=== PATIENT | male | born 1955 | race Caucasian/White ===

== ENCOUNTER 2017-06-20 12:29 | Emergency (ER) | payer MEDICARE ==
[2017-06-20] MEDS ORDERED: Zofran 4 MG/2 ML VIAL IV ONE (12:48)
[2017-06-20] MEDS ORDERED: MORPHINE SULFATE 2 MG INJ IV ONE (12:48)
[2017-06-20] MEDS ORDERED: Sodium Chloride 0.9% 1000 ML 1,000 ML IV STA (12:48)
[2017-06-20] MEDS ORDERED: Sodium Chloride 0.9% 1000 ML 1,000 ML ONE (12:53)
[2017-06-20] MEDS ORDERED: Zofran 4 MG/2 ML VIAL ONE (12:53)
[2017-06-20] MEDS ORDERED: MORPHINE SULFATE 2 MG INJ ONE (12:53)
--- NOTE | 2017-06-20 12:53 | ERPHSYRPT ---
- History of Present Illness Time Seen by Provider: 06/20/17 12:50 Historian: patient Exam Limitations: no limitations Patient Subjective Stated Complaint: pt states he began having chest pain that started this morning. states he became nauseated at that time. Triage Nursing Assessment: pt pink, warm, dry. lung sounds clear and equal. radial pulses strong and equal. Physician History: 62-year-old male with significant past medical history of hypertension came to the emergency room with complaining of left-sided chest pain radiating to the left arm started approximately one day ago, which was off and on, but in the last 1520 minutes. It got worse made him diaphoretic and had episode of nausea , so he came to the emergency room. In the emergency room. Patient just pain has lessened and he was feeling little bit better. Patient denies any loss of consciousness. Patient states that he has some abnormal EKGs in the past with right bundle-branch block. Timing/Duration: yesterday Activities at Onset: none Quality: aching Location: substernal Chest Pain Radiation: arm Severity of Pain-Max: moderate Severity of Pain-Current: mild Modifying Factors: Improves With: nothing Associated Symptoms: nausea, hurts to breathe, weakness Nitro Today/Relief: no nitro taken today Aspirin Treatment Today: no aspirin today Allergies/Adverse Reactions: No Known Drug Allergies Allergy (Verified 06/20/17 12:37) Home Medications: Aspirin [Aspirin EC] 81 mg PO DAILY 06/27/16 [History] Bupropion HCl [Wellbutrin Xl] 300 mg PO DAILY 06/27/16 [History] Cyanocobalamin (Vitamin B-12) [Vitamin B-12] 2,500 mcg PO DAILY 06/27/16 [ History] Hydroxychloroquine Sulfate [Plaquenil] 200 mg PO BID 06/27/16 [History] Iron 65 mg PO DAILY 06/27/16 [History] Tamsulosin HCl 0.4 mg [Flomax 0.4 MG] 0.4 mg PO DAILY 06/27/16 [History] Thiamine HCl [Vitamin B-1] 250 mg PO DAILY 06/27/16 [History] Trazodone HCl [Oleptro ER] 300 mg PO HS 06/27/16 [History] Calcium Citrate/Vitamin D3 [Calcium Cit-Vit D 250-200 Tab] 1 tab PO TIDAC [History] Melatonin/Pyridoxine [Melatonin 5 mg Tablet] 2 each PO HS PRN PRN 06/28/16 [ History] Alprazolam 0.25 mg [xanAX 0.25 MG] 0.25 mg PO DAILY 06/20/17 [History] Loratadine [Claritin] 10 mg PO DAILY 06/20/17 [History] Losartan Potassium 50 mg PO DAILY 06/20/17 [History] PANTOPRAZOLE 40 mg Tablet [Protonix 40MG Tablet] 40 mg PO DAILY 06/20/17 [ History] Vortioxetine Hydrobromide [Brintellix] 0 mg PO DAILY 06/20/17 [History] Hx Tetanus, Diphtheria Vaccination/Date Given: Yes (up ot date) Hx Influenza Vaccination/Date Given: Yes Hx Pneumococcal Vaccination/Date Given: No Immunizations Up to Date: Yes - Review of Systems Constitutional: No Fever, No Chills Eyes: No Symptoms Ears, Nose, & Throat: No Symptoms Respiratory: No Cough, No Dyspnea Cardiac: No Chest Pain, No Edema, No Syncope Abdominal/Gastrointestinal: No Abdominal Pain, No Nausea, No Vomiting, No Diarrhea Genitourinary Symptoms: No Dysuria Musculoskeletal: No Back Pain, No Neck Pain Skin: No Rash Neurological: No Dizziness, No Focal Weakness, No Sensory Changes Psychological: No Symptoms Endocrine: No Symptoms All Other Systems: Reviewed and Negative - Past Medical History Pertinent Past Medical History: Yes Neurological History: Migraines, Peripheral Neuropathy ENT History: Cataracts Cardiac History: Hypertension Respiratory History: No Pertinent History Endocrine Medical History: Adrenal Insufficiency Musculoskeletal History: Degenerative Disk Disease, Osteoarthritis GI Medical History: Hernia History: Other Psycho-Social History: Bipolar, Depression Male Reproductive Disorders: Other Other Medical History: Pt has had 7 back surgeries, two fusions, last surgery in 2005, B TKA, R GLENDY, Cervical fusion. Stage 3 kidney failure, removal of fatty tumor from neck, Bundle branch blockage, MRSA x3, Myelodysplasatic Syndrome. - Past Surgical History Past Surgical History: Yes Neuro Surgical History: No Pertinent History Cardiac: Cardiac Catheterization Respiratory: No Pertinent History Gastrointestinal: Appendectomy, Cholecystectomy Genitourinary: No Pertinent History Musculoskeletal: Joint Replacement, Orthopedic Surgery, Other Male Surgical History: No Pertinent History Other Surgical History: BOTH KNEES REPLACED. RIGHT HIP. 7 BACK OPERATIONS. GASTRIC BYP-ASS. 8 KIDNES STONES REMOVED. 2 CERVICAL FUSIONS. 2 HERNIA REPAIRS - Social History Smoking Status: Former smoker Exposure to second hand smoke: No Drug Use: none Patient Lives Alone: No - Nursing Vital Signs Nursing Vital Signs: Initial Vital Signs Temperature 98.7 F 06/20/17 12:31 Pulse Rate 78 06/20/17 12:31 Respiratory Rate 20 06/20/17 12:31 Blood Pressure 136/82 06/20/17 12:31 O2 Sat by Pulse Oximetry 98 06/20/17 12:31 Pain Scale Pain Intensity 6 - Physical Exam General Appearance: no apparent distress, alert Eye Exam: PERRL/EOMI, eyes nml inspection Ears, Nose, Throat Exam: normal ENT inspection, moist mucous membranes Neck Exam: normal inspection, non-tender, supple, full range of motion Respiratory Exam: normal breath sounds, lungs clear, No respiratory distress Cardiovascular Exam: regular rate/rhythm, normal heart sounds Gastrointestinal/Abdomen Exam: soft, No tenderness, No mass Back Exam: normal inspection, No CVA tenderness, No vertebral tenderness Extremity Exam: normal inspection, normal range of motion Neurologic Exam: alert, oriented x 3, cooperative, normal mood/affect, sensation nml, No motor deficits Skin Exam: normal color, warm, dry SpO2: 98 Oxygen Delivery: Room Air - Course Nursing assessment & vital signs reviewed: Yes - Radiology Exams Chest X-ray Interpretation: Reviewed by me Ordered Tests: Active Orders 24 hr Category Date Time Status Commercial [employer] Building [employer]er STAT Care 06/20/17 12:44 Active EKG-ER Only STAT Care 06/20/17 12:55 Active IV Insertion STAT Care 06/20/17 12:43 Active Pulse Oximetry (ED) STAT Care 06/20/17 12:43 Active CHEST 2 VIEWS (PA AND LAT) Stat Exams 06/20/17 12:48 Taken CBC W DIFF Stat Lab 06/20/17 12:50 Completed CMP Stat Lab 06/20/17 12:50 Completed D-DIMER QUANTITATION Stat Lab 06/20/17 12:50 Completed Manual Differential NC Stat Lab 06/20/17 12:50 Completed NT PRO BNP Stat Lab 06/20/17 12:50 Completed TROPONIN Q3H Lab 06/20/17 12:50 Completed TROPONIN Q3H Lab 06/20/17 16:00 Ordered TROPONIN Q3H Lab 06/20/17 19:00 Ordered TROPONIN Q3H Lab 06/20/17 22:00 Ordered TROPONIN Q3H Lab 06/21/17 01:00 Ordered Medication Summary Discontinued Medications Generic Name Dose Route Start Last Admin Trade Name Kellee PRN Reason Stop Dose Admin Sodium Chloride 1,000 mls @ 999 mls/hr 06/20/17 12:48 06/20/17 12:55 Sodium Chloride 0.9% 1000 Ml IV 06/20/17 13:48 999 mls/hr .Q1H1M STA Administration Sodium Chloride Confirm 06/20/17 12:53 Sodium Chloride 0.9% 1000 Ml Administered 06/20/17 12:54 Dose 1,000 mls @ ud .ROUTE .STK-MED ONE Ketorolac Tromethamine 30 mg 06/20/17 14:10 06/20/17 14:19 Toradol 30 Mg Injection IV 06/20/17 14:11 30 mg STAT ONE Administration Morphine Sulfate 2 mg 06/20/17 12:48 06/20/17 12:55 Morphine Sulfate 2 Mg Inj IV 06/20/17 12:49 2 mg STAT ONE Administration Morphine Sulfate Confirm 06/20/17 12:53 Morphine Sulfate 2 Mg Inj Administered 06/20/17 12:54 Dose 2 mg .ROUTE .STK-MED ONE Ondansetron HCl 4 mg 06/20/17 12:48 06/20/17 12:55 Zofran 4 Mg/2 Ml Vial IV 06/20/17 12:49 4 mg STAT ONE Administration Ondansetron HCl Confirm 06/20/17 12:53 Zofran 4 Mg/2 Ml Vial Administered 06/20/17 12:54 Dose 4 mg .ROUTE .STK-MED ONE Lab/Rad Data: Laboratory Result Diagrams 06/20/17 12:50 06/20/17 12:50 Laboratory Results 06/20/17 06/20/17 06/20/17 Range/Units 12:50 12:50 12:50 WBC (4.0-10.5) K/mm3 RBC (4.1-5.6) M/mm3 Hgb (12.5-18.0) gm/dl Hct (42-50) % MCV (78-100) fl MCH (26-32) pg MCHC (32-36) g/dl RDW (11.5-14.0) % Plt Count (150-450) K/mm3 MPV (6-9.5) fl Segmented Neutrophils (36.-66.) % Lymphocytes (Manual) (24-44) % Monocytes (Manual) (0.0-12.0) % Eosinophils (Manual) (0.00-3.0) % Differential Comment Platelet Estimate (NORMAL) Anisocytosis D-Dimer 274 (0-500) ng/mL Sodium 141 (136-145) mEq/L Potassium 4.1 (3.5-5.1) mEq/L Chloride 108 H (98-107) mEq/L Carbon Dioxide 24.7 (21-32) mEq/L Anion Gap 12.7 (5-15) MEQ/L BUN 22 H (9-20) mg/dL Creatinine 1.51 H (0.55-1.30) mg/dl Estimated GFR 50 ML/MIN Glucose 97 (70-110) MG/DL Calcium 8.7 (8.5-10.1) mg/dL Total Bilirubin 0.30 (0.2-1.0) mg/dL AST 13 L (15-37) U/L ALT 25 (12-78) U/L Alkaline Phosphatase 85 (46-116) U/L Troponin I < 0.017 (0.000-0.056) ng/ml NT-Pro-B Natriuret Pep 55 (0-125) pg/ml Serum Total Protein 6.9 (6.4-8.2) gm/dL Albumin 4.0 (3.4-5.0) g/dL 06/20/17 Range/Units 12:50 WBC 3.1 L (4.0-10.5) K/mm3 RBC 4.03 L (4.1-5.6) M/mm3 Hgb 11.7 L (12.5-18.0) gm/dl Hct 37.8 L (42-50) % MCV 93.8 (78-100) fl MCH 29.0 (26-32) pg MCHC 31.0 L (32-36) g/dl RDW 15.7 H (11.5-14.0) % Plt Count 189 (150-450) K/mm3 MPV 10.8 H (6-9.5) fl Segmented Neutrophils 74 H (36.-66.) % Lymphocytes (Manual) 21 L (24-44) % Monocytes (Manual) 4 (0.0-12.0) % Eosinophils (Manual) 1 (0.00-3.0) % Differential Comment ABNORMAL Platelet Estimate NORMAL (NORMAL) Anisocytosis 1+ D-Dimer (0-500) ng/mL Sodium (136-145) mEq/L Potassium (3.5-5.1) mEq/L Chloride (98-107) mEq/L Carbon Dioxide (21-32) mEq/L Anion Gap (5-15) MEQ/L BUN (9-20) mg/dL Creatinine (0.55-1.30) mg/dl Estimated GFR ML/MIN Glucose (70-110) MG/DL Calcium (8.5-10.1) mg/dL Total Bilirubin (0.2-1.0) mg/dL AST (15-37) U/L ALT (12-78) U/L Alkaline Phosphatase (46-116) U/L Troponin I (0.000-0.056) ng/ml NT-Pro-B Natriuret Pep (0-125) pg/ml Serum Total Protein (6.4-8.2) gm/dL Albumin (3.4-5.0) g/dL - Progress Progress: improved Air Movement: good Blood Culture(s) Obtained: No Antibiotics given: No Counseled pt/family regarding: lab results, diagnosis, need for follow-up, rad results - Departure Time of Disposition: 14:24 Departure Disposition: Home Clinical Impression: Chest pain of uncertain etiology, Pleurisy without effusion Condition: Stable Critical Care Time: Yes Critical Care Time(excluding separately billable procedures): 30-74 minutes Referrals: NOAH TORRES [Primary Care Provider] - Instructions: Chest Pain, Pleurisy Additional Instructions: During your ER visit, we have ruled out critical cause for your chest pain, which include heart attack, and or pneumonia and some other important cause including pulmonary embolism. But it is necessary that you follow up with your primary care physician in next 1-2 days and get further workup done if necessary. If your chest pain recur. Please come back to the emergency room. Please stay on all your medication. Follow-up with her primary care physician in next 1-2 days. Please take 4 baby aspirin once a day for next 3-5 days, which may help in 39-year-old pleursy like chest pain
[2017-06-20 13:17] LABS: Mean Cell Volume 93.8 fl (78-100); Mean Platelet Volume 10.8 fl (6-9.5); Platelet Count 189 K/mm3 (150-450); Red Blood Count 4.03 M/mm3 (4.1-5.6); Red Cell Distribution Width 15.7 % (11.5-14.0); White Blood Count 3.1 K/mm3 (4.0-10.5)
[2017-06-20 13:34] LABS: ANION GAP 12.7 MEQ/L (5-15); BILIRUBIN,TOTAL 0.3 mg/dL (0.2-1.0); Carbon Dioxide 24.7 mEq/L (21-32); Potassium 4.1 mEq/L (3.5-5.1); Total Protein 6.9 gm/dL (6.4-8.2)
[2017-06-20] MEDS ORDERED: TORAdol 30 mg Injection IV ONE (14:10)
[2017-06-20] MEDS ORDERED: TORAdol 30 mg Injection ONE (14:18)
[2017-06-20 14:20] LABS: ANISOCYTOSIS 1+; Eosinophil 1 % (0.00-3.0); Platelet Estimate NORMAL (NORMAL); Total Cells Counted 100
[2017-06-20 14:59] VITALS: BP 134/70; PULSE 87; O2SAT 100
--- NOTE | 2017-06-20 21:08 | XRAY ---
Indication: Chest pain. Comparison: December 20, 2015. PA/lateral chest again hyperinflated and clear with a few incidental calcified granulomas. Heart is not enlarged. Bony thorax intact again with minimal degenerative changes and partially visualized lower cervical fusion surgery. Impression: Stable nonacute hyperinflated chest with chronic features. Comment: Preliminary interpretation was made by [facility]. No discrepancy.
== END 2017-06-20 14:59 | disposition home or self-care (01) ==
LOC: ED 12:29
DX: R07.89 Other chest pain (principal); R09.1 Pleurisy; R11.2 Nausea with vomiting, unspecified; I10 Essential (primary) hypertension
CPT/HCPCS: 36000; 36415; 71020; 80053; 83880; 84484; 85025; 85379; 93005; 93041; 96360; 96374; 96375; 99284; J1885; J2270; J2405

== ENCOUNTER 2017-07-12 15:05 | Emergency (ER) | payer MEDICARE ==
--- NOTE | 2017-07-12 16:49 | ERPHSYRPT ---
- History of Present Illness Time Seen by Provider: 07/12/17 16:44 Source: patient Exam Limitations: no limitations Patient Subjective Stated Complaint: c/o back pain located on the left side that goes down left leg. Triage Nursing Assessment: PT was very slow to stand up to walk into ER. Pt walked slowly with a cane bent over. Skin is pink warm and dry. respirations even and unlabored. Physician History: The patient is a 62-year-old male with chronic back pain complaining of an exacerbation today. He has pain in the left low back that radiates down into his left leg. He has known left sciatica. He has tizanidine for muscle spasms but it has not helped much today. 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 His past medical history is significant for chronic back pain, multiple back surgeries, BPH, GERD, depression, anxiety, and hypertension. Timing/Duration: today Method of Injury: unknown Quality: radiating, sharp Back Pain Location: lumbar spine, paraspinous muscles Back Pain Radiation: buttocks, upper legs Severity of Pain-Max: moderate Severity of Pain-Current: moderate Modifying Factors: Improves With: pain medication Associated Symptoms: muscle spasms Previous symptoms: same symptoms as today Allergies/Adverse Reactions: No Known Drug Allergies Allergy (Verified 06/20/17 12:37) Home Medications: Aspirin [Aspirin EC] 81 mg PO DAILY 06/27/16 [History] Bupropion HCl [Wellbutrin Xl] 300 mg PO DAILY 06/27/16 [History] Cyanocobalamin (Vitamin B-12) [Vitamin B-12] 2,500 mcg PO DAILY 06/27/16 [ History] Hydroxychloroquine Sulfate [Plaquenil] 200 mg PO BID 06/27/16 [History] Iron 65 mg PO DAILY 06/27/16 [History] Tamsulosin HCl 0.4 mg [Flomax 0.4 MG] 0.4 mg PO DAILY 06/27/16 [History] Thiamine HCl [Vitamin B-1] 250 mg PO DAILY 06/27/16 [History] Trazodone HCl [Oleptro ER] 300 mg PO HS 06/27/16 [History] Calcium Citrate/Vitamin D3 [Calcium Cit-Vit D 250-200 Tab] 1 tab PO TIDAC [History] Melatonin/Pyridoxine [Melatonin 5 mg Tablet] 2 each PO HS PRN PRN 06/28/16 [ History] Alprazolam 0.25 mg [xanAX 0.25 MG] 0.25 mg PO DAILY 06/20/17 [History] Loratadine [Claritin] 10 mg PO DAILY 06/20/17 [History] Losartan Potassium 50 mg PO DAILY 06/20/17 [History] PANTOPRAZOLE 40 mg Tablet [Protonix 40MG Tablet] 40 mg PO DAILY 06/20/17 [ History] Vortioxetine Hydrobromide [Brintellix] 10 mg PO DAILY 06/20/17 [History] Clonidine HCl 0.3 mg PO DAILY 07/12/17 [History] Gabapentin [Neurontin] 600 mg PO DAILY 07/12/17 [History] Hx Tetanus, Diphtheria Vaccination/Date Given: Yes (2016) Hx Influenza Vaccination/Date Given: Yes (2016) Hx Pneumococcal Vaccination/Date Given: Yes (2016) Immunizations Up to Date: Yes - Review of Systems Constitutional: No Fever, No Chills Eyes: No Symptoms Ears, Nose, & Throat: No Symptoms Respiratory: No Cough, No Dyspnea Cardiac: No Chest Pain, No Edema, No Syncope Abdominal/Gastrointestinal: No Abdominal Pain, No Nausea, No Vomiting, No Diarrhea Genitourinary Symptoms: No Dysuria Musculoskeletal: Back Pain Skin: No Rash Neurological: No Dizziness, No Focal Weakness, No Sensory Changes Psychological: No Symptoms Endocrine: No Symptoms Hematologic/Lymphatic: No Symptoms Immunological/Allergic: No Symptoms All Other Systems: Reviewed and Negative - Past Medical History Pertinent Past Medical History: Yes Neurological History: Migraines, Peripheral Neuropathy ENT History: Cataracts Cardiac History: Hypertension Respiratory History: No Pertinent History Endocrine Medical History: Adrenal Insufficiency Musculoskeletal History: Degenerative Disk Disease, Osteoarthritis GI Medical History: Hernia History: Other Psycho-Social History: Bipolar, Depression Male Reproductive Disorders: Other Other Medical History: Pt has had 7 back surgeries, two fusions, last surgery in 2005, B TKA, R GLENDY, Cervical fusion. Stage 3 kidney failure, removal of fatty tumor from neck, Bundle branch blockage, MRSA x3, Myelodysplasatic Syndrome - Past Surgical History Past Surgical History: Yes Neuro Surgical History: No Pertinent History Cardiac: Cardiac Catheterization Respiratory: No Pertinent History Gastrointestinal: Appendectomy, Cholecystectomy Genitourinary: No Pertinent History Musculoskeletal: Joint Replacement, Orthopedic Surgery, Other Male Surgical History: No Pertinent History Other Surgical History: BOTH KNEES REPLACED. RIGHT HIP. 7 BACK OPERATIONS. GASTRIC BYP-ASS. 8 KIDNES STONES REMOVED. 2 CERVICAL FUSIONS. 2 HERNIA REPAIRS - Social History Smoking Status: Former smoker Exposure to second hand smoke: No Drug Use: none Patient Lives Alone: No - Nursing Vital Signs Nursing Vital Signs: Initial Vital Signs Temperature 98.6 F 07/12/17 15:22 Pulse Rate 73 07/12/17 15:22 Respiratory Rate 20 07/12/17 15:22 Blood Pressure 163/99 07/12/17 15:22 O2 Sat by Pulse Oximetry 95 07/12/17 15:22 Pain Scale Pain Intensity [Left Back] 8 Pain Intensity 8 - Physical Exam General Appearance: mild distress Eye Exam: PERRL/EOMI, eyes nml inspection Ears, Nose, Throat Exam: normal ENT inspection Neck Exam: normal inspection, non-tender, supple, full range of motion, No meningismus, No midline tenderness Respiratory Exam: normal breath sounds, lungs clear, No respiratory distress Cardiovascular Exam: regular rate/rhythm, normal heart sounds Gastrointestinal Exam: soft, No tenderness, No mass Rectal Exam: not done Back Exam: decreased range of motion, muscle spasm (left paraspinous), No vertebral tenderness Extremity Exam: normal inspection, normal range of motion, No calf tenderness, No pedal edema Neurologic Exam: abnormal gait Skin Exam: normal color, warm, dry, No rash SpO2 Interpretation: normal SpO2: 95 Oxygen Delivery: Room Air - Progress Progress: improved - Departure Time of Disposition: 17:14 Departure Disposition: Home Clinical Impression: Back spasm Condition: Stable Critical Care Time: No Referrals: NOAH TORRES [Primary Care Provider] - Additional Instructions: You have a back spasm in the left paraspinous muscle. You were given Toradol 60 mg and Decadron 10 mg by IM injection in the ER. You were also given Zofran 4 mg. You can increase your tizanidine from 4 mg to 8 mg every 8 hours as needed. Apply ice to your back as needed. Follow-up as needed.
[2017-07-12] MEDS ORDERED: DECADRON 10MG INJ. IM ONE (17:07)
[2017-07-12] MEDS ORDERED: TORAdol 30 mg Injection IM ONE (17:07)
[2017-07-12] MEDS ORDERED: ZOFRAN ODT 4 MG PO ONE (17:08)
[2017-07-12] MEDS ORDERED: DECADRON 10MG INJ. ONE (17:12)
[2017-07-12] MEDS ORDERED: ZOFRAN ODT 4 MG ONE (17:12)
[2017-07-12] MEDS ORDERED: TORAdol 30 mg Injection ONE (17:12)
[2017-07-12 17:33] VITALS: BP 135/98; PULSE 71; O2SAT 98
== END 2017-07-12 17:34 | disposition home or self-care (01) ==
LOC: ED 15:05
DX: M62.830 Muscle spasm of back (principal); M54.5 Low back pain; I10 Essential (primary) hypertension; Z79.899 Other long term (current) drug therapy
CPT/HCPCS: 96372; 99284; J1100; J1885; Q0162

== ENCOUNTER 2017-09-07 07:59 | Emergency (ER) | payer MEDICARE ==
[2017-09-07] MEDS ORDERED: MOTRIN 600 MG PO ONE (08:09)
[2017-09-07] MEDS ORDERED: MOTRIN 600 MG ONE (08:13)
[2017-09-07 08:14] VITALS: BP 146/75; PULSE 70; O2SAT 97
--- NOTE | 2017-09-07 08:19 | ERPHSYRPT ---
- History of Present Illness Time Seen by Provider: 09/07/17 08:06 Source: patient Patient Subjective Stated Complaint: has cast iron fall on left foot.pt has swelling and bruising to foot Triage Nursing Assessment: pt walked in , resp easy, alert, has strong pedal pulse Physician History: CC: left foot pain Hx: 62 y/o patient of Dr Torres dropped heavy skillet on left foot last evening. Painful and swollen. No blood thinners except baby asa. No other injuries. Occurred: yesterday Severity of Pain-Max: moderate Severity of Pain-Current: moderate Lower Extremities Pain: foot: left Allergies/Adverse Reactions: No Known Drug Allergies Allergy (Verified 09/07/17 08:14) Home Medications: Aspirin [Aspirin EC] 81 mg PO DAILY 06/27/16 [History] Bupropion HCl [Wellbutrin Xl] 300 mg PO DAILY 06/27/16 [History] Cyanocobalamin (Vitamin B-12) [Vitamin B-12] 2,500 mcg PO DAILY 06/27/16 [ History] Hydroxychloroquine Sulfate [Plaquenil] 200 mg PO BID 06/27/16 [History] Iron 65 mg PO DAILY 06/27/16 [History] Tamsulosin HCl 0.4 mg [Flomax 0.4 MG] 0.4 mg PO DAILY 06/27/16 [History] Thiamine HCl [Vitamin B-1] 250 mg PO DAILY 06/27/16 [History] Trazodone HCl [Oleptro ER] 300 mg PO HS 06/27/16 [History] Calcium Citrate/Vitamin D3 [Calcium Cit-Vit D 250-200 Tab] 1 tab PO TIDAC [History] Melatonin/Pyridoxine [Melatonin 5 mg Tablet] 2 each PO HS PRN PRN 06/28/16 [ History] Alprazolam 0.25 mg [xanAX 0.25 MG] 0.25 mg PO DAILY 06/20/17 [History] Loratadine [Claritin] 10 mg PO DAILY 06/20/17 [History] Losartan Potassium 50 mg PO DAILY 06/20/17 [History] PANTOPRAZOLE 40 mg Tablet [Protonix 40MG Tablet] 40 mg PO DAILY 06/20/17 [ History] Vortioxetine Hydrobromide [Brintellix] 10 mg PO DAILY 06/20/17 [History] Clonidine HCl 0.3 mg PO DAILY 07/12/17 [History] Gabapentin [Neurontin] 600 mg PO DAILY 07/12/17 [History] Hx Tetanus, Diphtheria Vaccination/Date Given: Yes Hx Influenza Vaccination/Date Given: Yes Hx Pneumococcal Vaccination/Date Given: Yes Immunizations Up to Date: Yes - Review of Systems Constitutional: No Symptoms Musculoskeletal: Joint Pain (left foot), No Back Pain, No Neck Pain Neurological: No Focal Weakness, No Parasthesia - Past Medical History Pertinent Past Medical History: Yes Neurological History: Migraines, Peripheral Neuropathy ENT History: Cataracts Cardiac History: Hypertension Respiratory History: No Pertinent History Endocrine Medical History: Adrenal Insufficiency Musculoskeletal History: Degenerative Disk Disease, Osteoarthritis GI Medical History: Hernia History: Other Psycho-Social History: Bipolar, Depression Male Reproductive Disorders: Other Other Medical History: Pt has had 7 back surgeries, two fusions, last surgery in 2005, B TKA, R GLENDY, Cervical fusion. Stage 3 kidney failure, removal of fatty tumor from neck, Bundle branch blockage, MRSA x3, Myelodysplasatic Syndrome - Past Surgical History Past Surgical History: Yes Neuro Surgical History: No Pertinent History Cardiac: Cardiac Catheterization Respiratory: No Pertinent History Gastrointestinal: Appendectomy, Cholecystectomy Genitourinary: No Pertinent History Musculoskeletal: Joint Replacement, Orthopedic Surgery, Other Male Surgical History: No Pertinent History Other Surgical History: BOTH KNEES REPLACED. RIGHT HIP. 7 BACK OPERATIONS. GASTRIC BYP-ASS. 8 KIDNES STONES REMOVED. 2 CERVICAL FUSIONS. 2 HERNIA REPAIRS - Social History Smoking Status: Former smoker Exposure to second hand smoke: No Drug Use: none Patient Lives Alone: No - Nursing Vital Signs Nursing Vital Signs: Initial Vital Signs Temperature 98.4 F 09/07/17 08:10 Pulse Rate 70 09/07/17 08:10 Respiratory Rate 16 09/07/17 08:10 Blood Pressure 146/75 09/07/17 08:10 O2 Sat by Pulse Oximetry 97 09/07/17 08:10 Pain Scale Pain Intensity 8 - Physical Exam General Appearance: alert Eyes, Ears, Nose, Throat Exam: moist mucous membranes Neck Exam: supple Cardiovascular/Respiratory Exam: no respiratory distress Neuro/Tendon Exam: normal sensation, normal motor functions Mental Status Exam: alert, oriented x 3, cooperative Skin Exam: warm, dry, No rash SpO2: 97 Oxygen Delivery: Room Air Comments: Left foot is tender and swollen with some bruising on the dorsum. Skin intact. - Course Nursing assessment & vital signs reviewed: Yes - Radiology Exams left foot X-ray Interpretation: Interpreted by me, No Fracture (prior screw fixation, heel spur) Ordered Tests: Active Orders 24 hr Category Date Time Status Wili Bandage Application -[facility] STAT Care 09/07/17 08:48 Active Cold Application STAT Care 09/07/17 08:09 Active Splint STAT Care 09/07/17 08:48 Active FOOT (MINIMUM 3 VIEWS) Stat Exams 09/07/17 08:09 Taken Medication Summary Discontinued Medications Generic Name Dose Route Start Last Admin Trade Name Freq PRN Reason Stop Dose Admin Ibuprofen 600 mg 09/07/17 08:09 09/07/17 08:13 Motrin 600 Mg PO 09/07/17 08:10 600 mg STAT ONE Administration Ibuprofen Confirm 09/07/17 08:13 Motrin 600 Mg Administered 09/07/17 08:14 Dose 600 mg .ROUTE .[facility] ONE - Progress Progress Note: 09/07/17 08:50 ?Hx renal insuff so will Rx norco. Wili wrap, darco shoe. Counseled pt/family regarding: diagnosis, need for follow-up, rad results - Departure Time of Disposition: 08:50 Departure Disposition: Home Clinical Impression: Contusion of left foot Condition: Stable Critical Care Time: No Referrals: NOAH TORRES [Primary Care Provider] - Instructions: Contusion Additional Instructions: SPRAINS/STRAINS/CONTUSIONS 1. Rest the affected area as much as possible for the next few days. 2. Apply ice to the affected area for 20-30 minutes at a time, several times a day. 3. If you receive an elastic wrap, wear it only while awake for comfort and support. Re-wrap the elastic wrap if it feels too tight or too loose. 4. If swelling is present, elevate the affected part above the level of the heart for at least 2 to 3 days. 5. Use splints, slings, or crutches as instructed. 6. Watch for severe swelling, coldness, numbness, and discoloration of the fingers and toes. See your family physician or return to the emergency department if any of these are noted. Rx norco- no driving. Wili wrap, darco post op shoe. Follow up with Dr Torres in 3-5 days if not better. Prescriptions: Hydrocodone Bit/Acetaminophen [[place] 5-325 Tablet] 1 each PO Q6H PRN PRN #10 tablet PRN Reason: Pain
--- NOTE | 2017-09-07 09:09 | XRAY ---
Indication: Pain following injury. Comparison: May 03, 2017. 3 nonweightbearing views of the left foot demonstrates mild anterior soft tissue swelling with stable 5h metatarsal head postsurgical changes with intact orthopedic screw and heel spurs. No new/acute bony, articular, or soft tissue abnormalities.
== END 2017-09-07 09:18 | disposition home or self-care (01) ==
LOC: ED 07:59
DX: S90.32XA Contusion of left foot, initial encounter (principal); W20.8XXA Other cause of strike by thrown, projected or falling object, initial encounter
CPT/HCPCS: 73630; 99284; A9270-GY

== ENCOUNTER 2018-08-28 08:08 | Emergency (ER) | payer MEDICARE ==
[2018-08-28 08:27] VITALS: BP 152/86; PULSE 80; O2SAT 96
--- NOTE | 2018-08-28 08:55 | ERPHSYRPT ---
- History of Present Illness Time Seen by Provider: 08/28/18 08:39 Source: patient Exam Limitations: no limitations Patient Subjective Stated Complaint: Fell on Wednesday, hit a metal cover in parking lot and hit face on pavement, chipped a couple of teeth, tried to catch self and now left shoulder hurts, skinned left knee and crowder Triage Nursing Assessment: Pt stated that he fell on Wednesday, tripped on a metal cover in parking lot and hit face on pavement, chipped a couple of teeth, tried to catch self and now left shoulder hurts, skinned left knee and crowder, cut lip, left shoulder and chest tender with palpatation, rates pain 6/10, BP 152/86, pulses normal, doesn't appear to be in any distress Physician History: The patient is a 63-year-old male who comes in complaining that he tripped over an object while helping his mother, falling onto his face and left shoulder. This happened Wednesday, 2 days ago. He denies loss of consciousness. He complains primarily that the upper front part of his left chest is hurting and becoming more painful. He is right-handed. He is able to move his left arm but it hurts his chest when he moves. It also hurts his chest when he takes a deep breath. He has been taking Tylenol but it doesn't help enough. He is concerned he may have broken something. His past medical history is significant for chronic back pain, back surgeries, kidney failure, kidney stones , hypertension, and bipolar disorder. Occurred: days ago (2) Reason for Fall: tripped, fell from standing pos Injuries/Pain Location: face, chest Severity of Pain-Max: moderate Severity of Pain-Current: moderate Modifying Factors: Improves With: pain medication Associated Symptoms (Fall): chest pain Allergies/Adverse Reactions: No Known Drug Allergies Allergy (Verified 08/28/18 08:27) Home Medications: Aspirin [Aspirin EC] 81 mg PO DAILY 06/27/16 [History] Cyanocobalamin (Vitamin B-12) [Vitamin B-12] 2,500 mcg PO DAILY 06/27/16 [ History] Hydroxychloroquine Sulfate [Plaquenil] 200 mg PO BID 06/27/16 [History] Iron 65 mg PO DAILY 06/27/16 [History] Tamsulosin HCl 0.4 mg [Flomax 0.4 MG] 0.4 mg PO DAILY 06/27/16 [History] Calcium Citrate/Vitamin D3 [Calcium Cit-Vit D 250-200 Tab] 1 tab PO TIDAC [History] Melatonin/Pyridoxine [Melatonin 5 mg Tablet] 2 each PO HS PRN PRN 06/28/16 [ History] Loratadine [Claritin] 10 mg PO DAILY 06/20/17 [History] Losartan Potassium 50 mg PO DAILY 06/20/17 [History] Gabapentin [Neurontin] 600 mg PO TID 07/12/17 [History] cloNIDine HCl [Clonidine HCl] 0.3 mg PO DAILY 07/12/17 [History] Fluticasone Propionate [Flonase NASAL] 1 spray NS DAILY 08/28/18 [History] Lurasidone HCl [Latuda] 60 mg PO HS 08/28/18 [History] Pyridoxine HCl (Vitamin B6) [B-6] 100 mg PO DAILY 08/28/18 [History] Hx Tetanus, Diphtheria Vaccination/Date Given: Yes Hx Influenza Vaccination/Date Given: Yes Hx Pneumococcal Vaccination/Date Given: Yes - Review of Systems Constitutional: No Fever, No Chills Eyes: No Symptoms Ears, Nose, & Throat: Other (chipped teeth) Respiratory: No Cough, No Dyspnea Cardiac: Chest Pain Abdominal/Gastrointestinal: No Abdominal Pain, No Nausea, No Vomiting, No Diarrhea Genitourinary Symptoms: No Dysuria Musculoskeletal: Fall, Injury, No Back Pain, No Neck Pain Skin: No Rash Neurological: No Dizziness, No Focal Weakness, No Sensory Changes Psychological: No Symptoms Endocrine: No Symptoms Hematologic/Lymphatic: No Symptoms Immunological/Allergic: No Symptoms All Other Systems: Reviewed and Negative - Past Medical History Pertinent Past Medical History: Yes Neurological History: Migraines, Peripheral Neuropathy ENT History: Cataracts Cardiac History: Hypertension Respiratory History: No Pertinent History Endocrine Medical History: Adrenal Insufficiency Musculoskeletal History: Degenerative Disk Disease, Osteoarthritis GI Medical History: Hernia History: Other Psycho-Social History: Bipolar, Depression Male Reproductive Disorders: Other Other Medical History: Pt has had 7 back surgeries, two fusions, last surgery in 2005, B TKA, R GLENDY, Cervical fusion. Stage 3 kidney failure, removal of fatty tumor from neck, Bundle branch blockage, MRSA x3, Myelodysplasatic Syndrome - Past Surgical History Past Surgical History: Yes Neuro Surgical History: No Pertinent History Cardiac: Cardiac Catheterization Respiratory: No Pertinent History Gastrointestinal: Appendectomy, Cholecystectomy Genitourinary: No Pertinent History Musculoskeletal: Joint Replacement, Orthopedic Surgery, Other Male Surgical History: No Pertinent History Other Surgical History: BOTH KNEES REPLACED. RIGHT HIP. 7 BACK OPERATIONS. GASTRIC BYP-ASS. 8 KIDNES STONES REMOVED. 2 CERVICAL FUSIONS. 2 HERNIA REPAIRS - Social History Smoking Status: Former smoker Exposure to second hand smoke: No Drug Use: none Patient Lives Alone: No - Nursing Vital Signs Nursing Vital Signs: Initial Vital Signs Temperature 98.4 F 08/28/18 08:12 Pulse Rate 80 08/28/18 08:12 Blood Pressure 152/86 08/28/18 08:12 O2 Sat by Pulse Oximetry 96 08/28/18 08:12 Pain Scale Pain Intensity 6 - Margie Coma Score Best Eye Response (Margie): (4) open spontaneously Best Verbal Response (Margie): (5) oriented Best Motor Response (Margie): (6) obeys commands Margie Total: 15 - Physical Exam General Appearance: no apparent distress, alert Head Injury: no evidence of injury Eye Exam: PERRL/EOMI ENT Exam: oral injury (two front teeth with chips) Neck Exam: normal inspection, No tenderness Respiratory/Chest Exam: chest tenderness (tenderness to mild palpation of superior lateral anterior chest; no bruising) Cardiovascular Exam: normal heart sounds, regular rate/rhythm Gastrointestinal Exam: soft, No tenderness, No distention, No guarding, No ecchymosis Rectal Exam: not done Back Exam: normal inspection, No vertebral tenderness Extremity Exam: normal inspection, limited range of motion (mild limited range of motion of left arm due to left anterior chest pain), No tenderness Neurologic Exam: alert, oriented x 3, cooperative, sensation nml, No motor deficits Skin Exam: normal color, warm, dry SpO2 Interpretation: normal SpO2: 96 Oxygen Delivery: Room Air - Radiology Exams Chest X-ray Interpretation: Interpreted by me, Negative (neg 2V chest, comp 2V chest ), No Pneumothorax Left Shoulder X-ray Interpretation: Interpreted by me, Negative, No Fracture, No Subluxation Left Ribs X-ray Interpretation: Interpreted by me, Negative, No Fracture, No Pneumothorax Ordered Tests: Active Orders 24 hr Category Date Time Status CHEST 2 VIEWS (PA AND LAT) Stat Exams 08/28/18 09:30 Taken RIBS UNILATERAL Stat Exams 08/28/18 09:01 Taken SHOULDER Stat Exams 08/28/18 09:01 Taken - Progress Progress: unchanged Counseled pt/family regarding: diagnosis, rad results - Departure Time of Disposition: 09:34 Departure Disposition: Home Clinical Impression: Fall, Left-sided chest wall pain Condition: Stable Critical Care Time: No Referrals: DOCTOR,NO FAMILY [Primary Care Provider] - Additional Instructions: You have a contusion to your left chest. The x-rays did not show any broken bones. Take Tylenol 1000 mg every 6-8 hours as needed for pain. Follow-up as needed with your primary medical doctor.
--- NOTE | 2018-08-28 10:51 | XRAY ---
Indication: Pain following fall. Comparison: None 2 views of the left ribs demonstrates incompletely visualized cervical/lumbar fusion surgery with spinal hardware, mild multilevel degenerative spondylosis, and mild left AC degenerative arthropathy. Upper abdomen suture material. No other bony, articular, or soft tissue abnormalities.
--- NOTE | 2018-08-28 10:52 | XRAY ---
Indication: Pain following fall. Comparison: June 20, 2017. PA/lateral chest again demonstrates tiny calcified granulomas. Minimal right base atelectasis/scarring. Remaining heart and lungs unremarkable. Bony thorax intact again with mild degenerative changes and cervical fusion hardware. Impression: Nonacute chest with chronic features.
--- NOTE | 2018-08-28 10:54 | XRAY ---
Indication: Pain following fall. Comparison: July 24, 2006. 3 views of the left shoulder again demonstrates mild AC degenerative arthropathy. No acute bony, articular, or soft tissue abnormalities.
== END 2018-08-28 09:48 | disposition home or self-care (01) ==
LOC: ED 08:08
DX: R07.89 Other chest pain (principal); K03.81 Cracked tooth; S01.511A Laceration without foreign body of lip, initial encounter; S80.812A Abrasion, left lower leg, initial encounter; W18.09XA Striking against other object with subsequent fall, initial encounter; Y93.01 Activity, walking, marching and hiking; Y92.481 Parking lot as the place of occurrence of the external cause; Z79.899 Other long term (current) drug therapy; M25.512 Pain in left shoulder
CPT/HCPCS: 71046; 71100; 73030; 99283

== ENCOUNTER 2019-07-04 20:13 | Observation (INO) | payer MEDICARE ==
--- NOTE | 2019-07-04 20:26 | ERPHSYRPT ---
- History of Present Illness Time Seen by Provider: 07/04/19 20:26 Source: patient Exam Limitations: no limitations Physician History: 64 y/o white male with known h/o diverticulitis in the past, presents with lower abd cramping, vomiting, diarrhea and fever. pt took tylenol at 1800 this pm. 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 Associated Symptoms: abdominal pain, nausea/vomiting Allergies/Adverse Reactions: No Known Drug Allergies Allergy (Verified 07/04/19 20:20) Home Medications: Aspirin [Aspirin EC] 81 mg PO DAILY 06/27/16 [History] Cyanocobalamin (Vitamin B-12) [Vitamin B-12] 2,500 mcg PO DAILY 06/27/16 [ History] Hydroxychloroquine Sulfate [Plaquenil] 200 mg PO BID 06/27/16 [History] Tamsulosin HCl 0.4 mg [Flomax 0.4 MG] 0.4 mg PO DAILY 06/27/16 [History] Calcium Citrate/Vitamin D3 [Calcium Cit-Vit D 250-200 Tab] 1 tab PO TIDAC [History] Melatonin/Pyridoxine [Melatonin 5 mg Tablet] 3 each PO HS PRN PRN 06/28/16 [ History] Loratadine [Claritin] 10 mg PO DAILY 06/20/17 [History] Losartan Potassium 50 mg PO DAILY 06/20/17 [History] Gabapentin [Neurontin] 600 mg PO QID 07/12/17 [History] cloNIDine HCl [Clonidine HCl] 0.3 mg PO HS 07/12/17 [History] Fluticasone Propionate [Flonase NASAL] 1 spray NS DAILY 08/28/18 [History] Lurasidone HCl [Latuda] 80 mg PO DAILY 08/28/18 [History] Pyridoxine HCl (Vitamin B6) [B-6] 100 mg PO DAILY 08/28/18 [History] Hx Tetanus, Diphtheria Vaccination/Date Given: Yes Hx Influenza Vaccination/Date Given: Yes Hx Pneumococcal Vaccination/Date Given: Yes - Review of Systems Constitutional: Fever Eyes: No Symptoms Ears, Nose, & Throat: No Symptoms Cardiac: No Symptoms Abdominal/Gastrointestinal: Abdominal Pain, Nausea, Vomiting, Diarrhea Genitourinary Symptoms: No Symptoms Musculoskeletal: No Symptoms Skin: No Symptoms Neurological: No Symptoms Psychological: No Symptoms Endocrine: No Symptoms Hematologic/Lymphatic: No Symptoms Immunological/Allergic: No Symptoms All Other Systems: Reviewed and Negative - Past Medical History Pertinent Past Medical History: Yes Neurological History: Migraines, Peripheral Neuropathy ENT History: Cataracts Cardiac History: Hypertension Respiratory History: No Pertinent History Endocrine Medical History: Adrenal Insufficiency Musculoskeletal History: Degenerative Disk Disease, Osteoarthritis GI Medical History: Hernia History: Other Psycho-Social History: Bipolar, Depression Male Reproductive Disorders: Other Other Medical History: Pt has had 7 back surgeries, two fusions, last surgery in 2005, B TKA, R GLENDY, Cervical fusion. Stage 3 kidney failure, removal of fatty tumor from neck, Bundle branch blockage, MRSA x3, Myelodysplasatic Syndrome - Past Surgical History Past Surgical History: Yes Neuro Surgical History: No Pertinent History Cardiac: Cardiac Catheterization Respiratory: No Pertinent History Gastrointestinal: Appendectomy, Cholecystectomy Genitourinary: No Pertinent History Musculoskeletal: Joint Replacement, Orthopedic Surgery, Other Male Surgical History: No Pertinent History Other Surgical History: BOTH KNEES REPLACED. RIGHT HIP. 7 BACK OPERATIONS. GASTRIC BYP-ASS. 8 KIDNES STONES REMOVED. 2 CERVICAL FUSIONS. 2 HERNIA REPAIRS - Social History Smoking Status: Former smoker Exposure to second hand smoke: No Drug Use: none Patient Lives Alone: No - Nursing Vital Signs Nursing Vital Signs: Initial Vital Signs Temperature 101.8 F 07/04/19 20:21 Pulse Rate 84 07/04/19 20:21 Respiratory Rate 18 07/04/19 20:21 Blood Pressure 110/76 07/04/19 20:21 O2 Sat by Pulse Oximetry 95 07/04/19 20:21 Pain Scale Pain Intensity 5 - Physical Exam General Appearance: mild distress, alert, anxiety Eye Exam: PERRL/EOMI, eyes nml inspection ENT Exam: normal ENT inspection, no apparent trauma, hearing grossly normal Neck Exam: normal inspection, non-tender, supple, full range of motion, trachea midline Respiratory Exam: normal breath sounds, lungs clear, no respiratory distress, no accessory muscle use, No chest non-tender, No respiratory distress Cardiovascular/Chest Exam: normal heart sounds, regular rate/rhythm Gastrointestinal/Abdominal Exam: soft, no distention, no mass, normal bowel sounds, guarding, tenderness (suprapubic), No distended, No rebound Rectal Exam: not done Extremity Exam: non-tender, normal range of motion, normal inspection Neurologic Exam: alert, oriented x 3, cooperative, 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 as tested Skin Exam: normal color, warm, dry Lymphatic: No adenopathy SpO2 Interpretation: normal O2 Delivery: Room Air - Course Nursing assessment & vital signs reviewed: Yes Ordered Tests: Active Orders 24 hr Category Date Time Status IV Insertion STAT Care 07/04/19 20:37 Active NPO (ED) STAT Care 07/04/19 20:37 Active ABDOMEN AND PELVIS W/0 CONTRAS [CT] Stat Exams 07/04/19 20:39 Taken AMYLASE Stat Lab 07/04/19 20:50 Completed BLOOD CULTURE Stat Lab 07/04/19 21:00 Received CBC W DIFF Stat Lab 07/04/19 20:50 Completed CMP Stat Lab 07/04/19 20:50 Completed CULTURE,URINE Stat Lab 07/04/19 20:50 Received LIPASE Stat Lab 07/04/19 20:50 Completed Lactic Acid Stat Lab 07/04/19 20:55 Completed UA W/RFX UR CULTURE Stat Lab 07/04/19 20:50 Completed Transfer Order Routine Transfer 07/04/19 Ordered Medication Summary Generic Name Dose Route Start Last Admin Trade Name Freq PRN Reason Stop Dose Admin Metronidazole 500 mg in 100 mls @ 200 mls/hr 07/04/19 22:08 07/04/19 22:15 Flagyl 500 Mg Ivpb IV 07/04/19 22:37 200 mls/hr STAT STA 200 mls/hr Administration Levofloxacin/Dextrose 750 mg in 150 mls @ 100 mls/hr 07/04/19 22:08 07/04/19 22:15 Levofloxacin 750mg/150ml D5w IV 07/04/19 23:37 100 mls/hr STAT STA 100 mls/hr Administration Discontinued Medications Generic Name Dose Route Start Last Admin Trade Name Freq PRN Reason Stop Dose Admin Hydromorphone HCl 1 mg 07/04/19 22:07 07/04/19 22:14 Hydromorphone 1 Mg/Ml Ampule IV 07/04/19 22:08 1 mg STAT ONE Administration Sodium Chloride 1,000 mls @ 999 mls/hr 07/04/19 20:37 07/04/19 22:15 Sodium Chloride 0.9% 1000 Ml IV 07/04/19 21:37 Infused .Q1H1M STA Infusion Sodium Chloride Confirm 07/04/19 20:43 Sodium Chloride 0.9% 1000 Ml Administered 07/04/19 20:44 Dose 1,000 mls @ ud .ROUTE .STK-MED ONE Ondansetron HCl 4 mg 07/04/19 20:37 07/04/19 20:45 Zofran 4 Mg/2 Ml Vial IV 07/04/19 20:38 4 mg STAT ONE Administration Ondansetron HCl Confirm 07/04/19 20:43 Zofran 4 Mg/2 Ml Vial Administered 07/04/19 20:44 Dose 4 mg .ROUTE .[facility] ONE Lab/Rad Data: Laboratory Result Diagrams 07/04/19 20:50 07/04/19 20:50 Laboratory Results 07/04/19 07/04/19 07/04/19 Range/Units 20:55 20:50 20:50 WBC (4.0-10.5) K/mm3 RBC (4.1-5.6) M/mm3 Hgb (12.5-18.0) gm/dl Hct (42-50) % MCV (78-100) fl MCH (26-32) pg MCHC (32-36) g/dl RDW (11.5-14.0) % Plt Count (150-450) K/mm3 MPV (6-9.5) fl Gran % (36.0-66.0) % Eos # (Auto) (0-0.5) Absolute Lymphs (auto) (1.0-4.6) Absolute Monos (auto) (0.0-1.3) Lymphocytes % (24.0-44.0) % Monocytes % (0.0-12.0) % Eosinophils % (0.00-5.0) % Basophils % (0.0-0.4) % Absolute Granulocytes (1.4-6.9) Basophils # (0-0.4) Sodium 138 (137-145) mmol/L Potassium 4.4 (3.5-5.1) mmol/L Chloride 105 (98-107) mmol/L Carbon Dioxide 22 (22-30) mmol/L Anion Gap 15.0 (5-15) MEQ/L BUN 23 H (9-20) mg/dL Creatinine 1.80 H (0.66-1.25) mg/dL Estimated GFR 40.4 ML/MIN Glucose 97 (74-106) mg/dL Lactic Acid 1.4 (0.4-2.0) Calcium 9.1 (8.4-10.2) mg/dL Total Bilirubin 0.50 (0.2-1.3) mg/dL AST 22 (17-59) U/L ALT 21 (0-50) U/L Alkaline Phosphatase 67 (38-126) U/L Serum Total Protein 6.8 (6.3-8.2) g/dL Albumin 4.0 (3.5-5.0) g/dL Amylase 88 (30-110) U/L Lipase 134 (23-300) U/L Urine Color YELLOW (YELLOW) Urine Appearance SLIGHTLY CLOUDY (CLEAR) Urine pH 5.0 (5-6) Ur Specific [place] 1.018 (1.005-1.025) Urine Protein NEGATIVE (Negative) Urine Ketones NEGATIVE (NEGATIVE) Urine Blood NEGATIVE (0-5) Michael/ul Urine Nitrite NEGATIVE (NEGATIVE) Urine Bilirubin NEGATIVE (NEGATIVE) Urine Urobilinogen NEGATIVE (0-1) mg/dL Ur Leukocyte Esterase MODERATE (NEGATIVE) Urine WBC (Auto) 16-25 (0-5) /HPF Urine RBC (Auto) 3-5 (0-2) /HPF U Epithel Cells (Auto) RARE (FEW) /HPF Urine Bacteria (Auto) RARE (NEGATIVE) /HPF Urine Culture Reflexed YES (NO) Urine Glucose NEGATIVE (NEGATIVE) mg/dL 07/04/19 Range/Units 20:50 WBC 8.5 (4.0-10.5) K/mm3 RBC 4.01 L (4.1-5.6) M/mm3 Hgb 12.1 L (12.5-18.0) gm/dl Hct 37.4 L (42-50) % MCV 93.3 (78-100) fl MCH 30.1 (26-32) pg MCHC 32.4 (32-36) g/dl RDW 14.9 H (11.5-14.0) % Plt Count 195 (150-450) K/mm3 MPV 9.8 H (6-9.5) fl Gran % 87.4 H (36.0-66.0) % Eos # (Auto) 0.05 (0-0.5) Absolute Lymphs (auto) 0.41 L (1.0-4.6) Absolute Monos (auto) 0.60 (0.0-1.3) Lymphocytes % 4.8 L (24.0-44.0) % Monocytes % 7.1 (0.0-12.0) % Eosinophils % 0.6 (0.00-5.0) % Basophils % 0.1 (0.0-0.4) % Absolute Granulocytes 7.40 H (1.4-6.9) Basophils # 0.01 (0-0.4) Sodium (137-145) mmol/L Potassium (3.5-5.1) mmol/L Chloride (98-107) mmol/L Carbon Dioxide (22-30) mmol/L Anion Gap (5-15) MEQ/L BUN (9-20) mg/dL Creatinine (0.66-1.25) mg/dL Estimated GFR ML/MIN Glucose (74-106) mg/dL Lactic Acid (0.4-2.0) Calcium (8.4-10.2) mg/dL Total Bilirubin (0.2-1.3) mg/dL AST (17-59) U/L ALT (0-50) U/L Alkaline Phosphatase (38-126) U/L Serum Total Protein (6.3-8.2) g/dL Albumin (3.5-5.0) g/dL Amylase (30-110) U/L Lipase (23-300) U/L Urine Color (YELLOW) Urine Appearance (CLEAR) Urine pH (5-6) Ur Specific [place] (1.005-1.025) Urine Protein (Negative) Urine Ketones (NEGATIVE) Urine Blood (0-5) Michael/ul Urine Nitrite (NEGATIVE) Urine Bilirubin (NEGATIVE) Urine Urobilinogen (0-1) mg/dL Ur Leukocyte Esterase (NEGATIVE) Urine WBC (Auto) (0-5) /HPF Urine RBC (Auto) (0-2) /HPF U Epithel Cells (Auto) (FEW) /HPF Urine Bacteria (Auto) (NEGATIVE) /HPF Urine Culture Reflexed (NO) Urine Glucose (NEGATIVE) mg/dL - Progress Progress: improved Progress Note: 07/04/19 22:10 ct abd/pelvis-ileus versus enterocolitis. spoke w/dr. bain. i reviewed pt hx, condition, lab, ekg and ct scan results. she accepts pt for placement in obs Discussed with : Divya Counseled pt/family regarding: lab results, diagnosis, rad results - Departure Departure Disposition: Observation Clinical Impression: Enterocolitis, UTI (urinary tract infection) Condition: Stable Critical Care Time: No Referrals: DOCTOR,NO FAMILY [NON-STAFF PHY W/O PRIVILEGES] -
[2019-07-04] MEDS ORDERED: Zofran 4 MG/2 ML VIAL IV ONE (20:37)
[2019-07-04] MEDS ORDERED: Sodium Chloride 0.9% 1000 ML 1,000 ML IV STA (20:37)
[2019-07-04] MEDS ORDERED: Sodium Chloride 0.9% 1000 ML 1,000 ML ONE (20:43)
[2019-07-04] MEDS ORDERED: Zofran 4 MG/2 ML VIAL ONE (20:43)
[2019-07-04 21:07] LABS: BASOPHIL % 0.1 % (0.0-0.4); Basophil (Absolute #) 0.01 (0-0.4); Eosinophil % 0.6 % (0.00-5.0); Eosinophil (Absolute #) 0.05 (0-0.5); Granulocytes % 87.4 % (36.0-66.0); Hematocrit 37.4 % (42-50); Hemoglobin 12.1 gm/dl (12.5-18.0); Lymphocyte (Absolute #) 0.41 (1.0-4.6); Lymphocytes % 4.8 % (24.0-44.0); Mean Cell Volume 93.3 fl (78-100); Mean Corpuscular Hgb Concent. 32.4 g/dl (32-36); Mean Platelet Volume 9.8 fl (6-9.5); Monocytes % 7.1 % (0.0-12.0); Platelet Count 195 K/mm3 (150-450); Red Blood Count 4.01 M/mm3 (4.1-5.6); Red Cell Distribution Width 14.9 % (11.5-14.0); White Blood Count 8.5 K/mm3 (4.0-10.5)
[2019-07-04 21:11] LABS: Mean Corpuscular Hemoglobin 30.1 pg (26-32)
[2019-07-04 21:24] LABS: Appearance SLIGHTLY CLOUDY (CLEAR); Bacteria RARE /HPF (NEGATIVE); Bilirubin NEGATIVE (NEGATIVE); Blood NEGATIVE Ery/ul (0-5); Epithelial Cells RARE /HPF (FEW); Glucose NEGATIVE (NEGATIVE); Ketones NEGATIVE (NEGATIVE); Leukocyte Esterase MODERATE (NEGATIVE); Nitrite NEGATIVE (NEGATIVE); Protein,Urine Dip NEGATIVE (Negative); Specific Gravity 1.018 (1.005-1.025); Urobilinogen NEGATIVE mg/dL (0-1)
[2019-07-04 21:27] LABS: BILIRUBIN,TOTAL 0.5 mg/dL (0.2-1.3); Calcium 9.1 mg/dL (8.4-10.2); Creatinine 1 1.8 mg/dL (0.66-1.25); Potassium 4.4 mmol/L (3.5-5.1); Total Protein 6.8 g/dL (6.3-8.2)
[2019-07-04] MEDS ORDERED: Hydromorphone 1 mg/ml Ampule IV ONE (22:07)
[2019-07-04] MEDS ORDERED: LEVOFLOXACIN 750MG/150ML D5W 750 MG/150 ML BAG IV STA (22:08)
[2019-07-04] MEDS ORDERED: FLAGYL 500 MG IVPB 500 MG/100 ML BAG IV STA (22:08)
[2019-07-04 22:32] LABS: Slide Review 1 YES
[2019-07-04] MEDS ORDERED: Zofran 4 MG/2 ML VIAL IV PRN (23:33)
[2019-07-04] MEDS ORDERED: DILAUDID 2 MG INJECTION IV PRN (23:33)
[2019-07-05] MEDS ORDERED: ATARAX 25 MG PO ONE (00:17)
[2019-07-05] MEDS ORDERED: NEURONTIN 300 MG PO ONE (00:18)
[2019-07-05] MEDS ORDERED: Catapres 0.1 MG PO ONE (00:19)
[2019-07-05] MEDS ORDERED: Calcium 500MG W/Vit D Tablet PO ONE (00:22)
[2019-07-05] MEDS: FLAGYL 500 MG IVPB 500 MG/100 ML BAG IV SCH ×4 (00:30→17:07)
[2019-07-05] MEDS: Sodium Chloride 0.9% 1000 ML 1,000 ML IV SCH ×2 (00:30→12:22)
[2019-07-05] MEDS: TYLENOL 325 MG PO PRN ×2 (04:17→12:23)
[2019-07-05 06:20] LABS: BASOPHIL % 0.2 % (0.0-0.4); Basophil (Absolute #) 0.01 (0-0.4); Eosinophil % 0.2 % (0.00-5.0); Eosinophil (Absolute #) 0.01 (0-0.5); Granulocyte Absolute (ANC) 4.99 (1.4-6.9); Granulocytes % 86.6 % (36.0-66.0); Hematocrit 34.8 % (42-50); Hemoglobin 11.1 gm/dl (12.5-18.0); Lymphocyte (Absolute #) 0.35 (1.0-4.6); Mean Cell Volume 93.8 fl (78-100); Mean Corpuscular Hemoglobin 29.9 pg (26-32); Mean Corpuscular Hgb Concent. 31.9 g/dl (32-36); Mean Platelet Volume 10.6 fl (6-9.5); Monocytes % 6.9 % (0.0-12.0); Platelet Count 181 K/mm3 (150-450); Red Blood Count 3.71 M/mm3 (4.1-5.6); Red Cell Distribution Width 14.9 % (11.5-14.0); White Blood Count 5.8 K/mm3 (4.0-10.5)
[2019-07-05 06:40] LABS: ALBUMIN 3.4 g/dL (3.5-5.0); ANION GAP 14.5 MEQ/L (5-15); BILIRUBIN,TOTAL 0.6 mg/dL (0.2-1.3); Creatinine 1 1.77 mg/dL (0.66-1.25); Potassium 4.4 mmol/L (3.5-5.1)
[2019-07-05 08:15] LABS: Lymphocytes % 6.1 % (24.0-44.0)
--- NOTE | 2019-07-05 09:19 | XRAY ---
Exam: CT of the abdomen and pelvis without IV contrast from 07/04/2019. CTDI: 27.78 mGy. Comparison: CT of the abdomen and pelvis without IV contrast from 06/27/2016. Technique: Non-IV contrast axial images were obtained through the abdomen and pelvis. Reconstructed coronal and sagittal images were created and reviewed. Indication: 61-year-old male with lower abdominal pain associated with nausea, vomiting, and diarrhea as well as fever for one day. The patient has a history of prior gastric bypass surgery, cholecystectomy, and appendectomy. Findings: The lung bases reveal a small amount of stable calcified plaque within the posterior aspect of both hemidiaphragms. In addition, there is some focal atelectasis at both the anterior and posterior aspects of the right lung base. There is mild concentric wall thickening of the distal thoracic esophagus on axial image #13. The esophageal wall measures up to 8.3 mm in thickness. This may not be significant, but esophagitis or GERD should be considered. Correlate clinically regarding esophageal symptoms to see if this warrants any further investigation. There is a small amount of pericardial fluid anteriorly on axial image #12. This may be physiologic. Evaluation of the solid organs is limited on CT study without IV contrast. The liver appears of unremarkable size. No obvious liver mass is seen. Surgical clips consistent with prior cholecystectomy are noted. The central intrahepatic bile ducts are mildly prominent, but unchanged. This may reflect the patient's prior cholecystectomy. Surgical clips are seen within the projection of the stomach and bowel consistent with prior gastric bypass surgery. I note abundant fluid with scattered air-fluid levels within both the small bowel and colon. This may reflect a generalized ileus or enterocolitis. I see no findings of bowel obstruction. A mild amount of scattered stool is seen within the colon. Greatest transverse diameter of the spleen is 14.1 cm suggesting borderline to slight splenomegaly. A few small calcified granulomas are seen within the spleen. The pancreas reveals no significant abnormality. The adrenal glands reveal no significant abnormality. There is a 6.0 cm in diameter cyst within the upper pole of the right kidney representing no significant change. Prior small nonobstructing stone within each kidney are no longer seen. No other gross renal mass or hydronephrosis is seen. The abdominal aorta is mildly tortuous, but no aneurysm is seen. No abnormal retroperitoneal lymphadenopathy is seen. No free intraperitoneal air or ventral abdominal wall hernia is seen. The appendix is reportedly to be surgically absent. There are clips within the right inguinal region suggestive of prior herniorrhaphy A prominent air-fluid level is seen within the rectum. The prostate gland is mildly enlarged measuring about 5.6 cm in width and contains some central prominent calcification on axial image #85. This is essentially unchanged. No other pelvic mass or enlarged pelvic lymph nodes are seen. There is no free fluid within the pelvis. There is evidence of prior right hip replacement. In addition, I see evidence of multilevel lumbar laminectomy with posterior surgical fusion extending from L2-S1. There is a minimal upper lumbar rotary dextroscoliosis centered at T12-L1. Impression: 1. Abundant fluid is seen within mildly prominent small bowel and colon throughout the abdomen and pelvis without significant bowel wall thickening. The findings are most consistent with a generalized ileus or enterocolitis. Scattered stool is seen within the colon. 2. No free intraperitoneal air or free intraperineal fluid is seen. 3. Status post gastric bypass surgery, cholecystectomy, appendectomy, right inguinal hernia repair, multilevel laminectomy with posterior surgical fusion of L2-S1, and right hip arthroplasty. 4. The nonobstructing renal calculus seen within each kidney on the prior study of 06/27/2016 is no longer seen. I see no evidence of obstructive uropathy. An upper pole right renal cyst remains unchanged. 5. The prostate gland is at least mildly enlarged representing no significant change. 6. Slight splenomegaly representing no significant change from 2016. 7. On axial image #13, I note some mild concentric esophageal wall thickening measuring up to 8.3 mm. This might be due to esophagitis or GERD. Correlate clinically to see if any further investigation is needed to exclude a more ominous process. 8. No other acute process is seen within the abdomen or pelvis.
[2019-07-05] MEDS ORDERED: MELATONIN PO PRN (09:40)
[2019-07-05] MEDS ORDERED: PYRIDOXINE PO PRN (09:40)
[2019-07-05 09:50] LABS: Iron 34 ug/dL (49-181); Iron Saturation 12 % (20-39); TIBC 285 ug/dL (261-497)
[2019-07-05] MEDS ORDERED: LURASIDONE HCL 80 MG PO SCH (10:00)
[2019-07-05] MEDS ORDERED: VITAMIN D3 PO SCH (10:00)
[2019-07-05] MEDS ORDERED: PYRIDOXINE HCL 100 MG PO SCH (10:00)
[2019-07-05] MEDS ORDERED: CALCIUM CITRATE PO SCH (10:00)
[2019-07-05] MEDS ORDERED: CYANOCOBALAMIN 2500 MCG PO SCH (10:00)
[2019-07-05] MEDS ORDERED: NON-FORMULARY ITEM (Hydroxychloroquine Sulfate [Plaquenil] 200 MG) PO SCH (10:00)
[2019-07-05] MEDS ORDERED: NON-FORMULARY ITEM (Gabapentin [Neurontin] 600 MG) PO SCH (10:00)
[2019-07-05] MEDS ORDERED: MEDICATION INTERVENTION PO SCH ×3 (10:15)
[2019-07-05] MEDS: ENOXAPARIN SODIUM SQ SCH (10:43)
[2019-07-05] MEDS: Calcium 500MG W/Vit D Tablet PO SCH ×3 (10:44→20:51)
[2019-07-05] MEDS: CLARITIN 10 MG PO SCH (10:44)
[2019-07-05] MEDS: Vitamin B-12 500 MCG PO SCH (10:44)
[2019-07-05] MEDS: NEURONTIN 300 MG PO SCH ×4 (10:44→20:52)
[2019-07-05] MEDS: ECOTRIN 81 MG PO SCH (10:44)
[2019-07-05] MEDS: Flomax 0.4 MG PO SCH (10:44)
[2019-07-05] MEDS: Flonase NASAL NS SCH (10:47)
[2019-07-05] MEDS: Vitamin B-6 (Pyridoxine) 100 MG PO SCH (10:50)
--- NOTE | 2019-07-05 11:18 | HP ---
HISTORY OF PRESENT ILLNESS: This is 64 y/o patient of mine who presented to the Emergency Department. He reports that he felt bad for a couple of days and then yesterday on 07/04/19 felt worse. He states he had a fever up to 101.7 in the Emergency Room with having fever at home, nausea, vomiting, and diarrhea. He reports he was having trouble keeping food or fluids down, but was still urinating. He reports a positive sick contact with his daughter who had vomiting and diarrhea too. He reports his stomach still feels queasy, but much better now with fevers gone. He feels like trying to eat. He states his pain is under control now. He had some pain all through his stomach that felt like a twisting, but pain medication helped and he reports that he had gotten that twice yesterday since he was admitted. He has had a colonoscopy in the past. His outpatient records show he had one in 2011 and also had one in 2010. He has a history of gastric bypass surgery in 2005. He reports his diarrhea is decreased now and his nausea is under control. He is starting to feel better. He denies travel. He has ate out. Last ate at [employer] in [place] on Wednesday. REVIEW OF SYSTEMS: He denies any dysuria. No melena. No hematuria. No rashes. Otherwise, review of systems is negative. PAST MEDICAL HISTORY: Osteoarthritis, chronic kidney disease stage III and was last seen at Dr. Thor Lee in [place], bipolar disorder which he sees [facility] for, history of right bundle branch block. PAST SURGICAL HISTORY: Back surgery, multiple; cataract surgery; hernia repair; left foot surgery; left knee surgery X3 before knee replacement; bilateral knee replacement; lipoma removed from his back; cervical fusion; tonsillectomy; right hip replacement; gastric bypass surgery; appendectomy; cholecystectomy. SOCIAL HISTORY: He is a former smoker and quit over 30 years ago. He is . His daughters sometimes stay with him. FAMILY HISTORY: Noncontributory. CURRENT MEDICATIONS: Please see the home medication reconciliation form which I reviewed. ALLERGIES: NKDA. PHYSICAL EXAMINATION: VITAL SIGNS: Temperature current 99.6, temperature maximum 101.8, heart rate 69, respiratory rate 24, O2 saturation 94% on room air, BP 98-122/57-69, currently 98/57. GENERAL: The patient is a pleasant, talkative man lying in bed and able to sit up easily. In no acute distress. CVS: He has a regular rate and rhythm. No murmurs, gallops, or rubs appreciated. CHEST: Clear to auscultation bilaterally. ABDOMEN: Soft, nontender, nondistended with normal bowel sounds. EXTREMITIES: No clubbing, cyanosis, or edema. SKIN: Warm, dry, and intact without any rashes. WBC 8.5 on admission, now 5.8. Hgb 12.1, now 11.1. Platelet count is normal. Creatinine was 1.8 on admission, now 1.77. UA revealed 16-25 WBC. Urine culture is in lab. Blood cultures are in lab. CT scan of the abdomen and pelvis according to the preliminary report revealed new mild fluid distended small and large bowel loops of fluid leveling, ileus vs enterocolitis; stable bibasilar calcified pleural plaquing; gastric bypass surgery; lumbar fusion/laminectomy; right upper renal cyst 14.5 cm; splenomegaly; right hip arthroplasty; remaining abdomen and pelvis negative. Read by Dr. Marsh. ASSESSMENT AND PLAN: 1. ENTEROCOLITIS. He was given IV fluids overnight. He has a clear liquid diet this morning. If this is tolerated, will advance his diet. He is on metronidazole and Levaquin. Will plan to continue this. 2. URINARY TRACT INFECTION. He is on Levaquin. A urine culture is in lab. 3. ANEMIA. Will check his iron levels and vitamin B12 levels. 4. CHRONIC KIDNEY DISEASE STABLE AT THIS POINT. 5. BIPOLAR DISORDER. Will continue his home medications. 6. HYPERTENSION. I am going to hold his losartan as his BP is on the low end of normal. 7. INSOMNIA. Will plan to continue with his home medications, although I have decreased the hydroxyzine from 100 mg to 50 mg. 8. DEEP VEIN THROMBOSIS PROPHYLAXIS. Will plan to use Lovenox.
[2019-07-05] MEDS: Levofloxacin 500MG/100ML D5W 500 MG/100 ML BAG IV SCH (20:49)
[2019-07-05] MEDS: ATARAX 25 MG PO SCH (20:50)
[2019-07-05] MEDS ORDERED: HYDROXYZINE HCL PO SCH (22:00)
[2019-07-05] MEDS ORDERED: CLONIDINE HCL 0.3 MG PO SCH (22:00)
[2019-07-06] MEDS: Catapres 0.1 MG PO SCH ×2 (00:02→21:44)
[2019-07-06] MEDS: FLAGYL 500 MG IVPB 500 MG/100 ML BAG IV SCH ×4 (00:13→17:25)
[2019-07-06 05:29] LABS: BASOPHIL % 0.3 % (0.0-0.4); Basophil (Absolute #) 0.01 (0-0.4); Eosinophil % 1.3 % (0.00-5.0); Eosinophil (Absolute #) 0.04 (0-0.5); Granulocytes % 66.2 % (36.0-66.0); Hematocrit 34.7 % (42-50); Hemoglobin 11.2 gm/dl (12.5-18.0); Lymphocytes % 16.6 % (24.0-44.0); Mean Corpuscular Hgb Concent. 32.3 g/dl (32-36); Mean Platelet Volume 10.2 fl (6-9.5); Monocyte (Absolute #) 0.47 (0.0-1.3); Monocytes % 15.6 % (0.0-12.0); Platelet Count 152 K/mm3 (150-450); Red Blood Count 3.73 M/mm3 (4.1-5.6); Red Cell Distribution Width 14.8 % (11.5-14.0)
[2019-07-06 05:37] LABS: ANION GAP 13.2 MEQ/L (5-15); Calcium 8.8 mg/dL (8.4-10.2); Creatinine 1 1.9 mg/dL (0.66-1.25); Potassium 3.9 mmol/L (3.5-5.1)
--- NOTE | 2019-07-06 08:35 | PCM.NOTE ---
Date and Time: 07/06/19828 Subjective Assessment: Patient reports fever last night and increased diarrhea this AM with going 3 x in the past 3 hours. He reports his stomach gurgles. He reports the nausea is better and he denies vomiting. He feels like with the increased diarrhea, it would be best to stay here today and perhaps go home tomorrow. Objective Exam General Appearance: no apparent distress, alert Neurologic Exam: alert, cooperative, other (sitting up in bed in NAD, talkative) Skin Exam: normal color, warm, dry Respiratory Exam: normal breath sounds, lungs clear, No crackles/rales, No rhonchi, No wheezing Cardiovascular Exam: regular rate/rhythm, normal heart sounds, No murmur, No friction rub, No gallop Gastrointestinal/Abdomen Exam: soft, other (hyperactive bowel sounds), No tenderness, No distention, No mass, No guarding Extremity Exam: normal inspection, other (no c/c/e) OBJECTIVE DATA Vital Signs: Vital Signs - 24 hr Temp Pulse Resp BP Pulse Ox 07/06/19 07:00 98.9 F 80 18 145/73 96 07/06/19 03:00 99.4 F 72 18 127/73 95 07/05/19 23:00 99.6 F 70 18 134/75 96 07/05/19 19:55 98.6 F 65 18 105/61 96 07/05/19 18:00 98.4 F 64 20 100/55 93 L 07/05/19 12:19 100.0 F 74 18 131/58 99 07/05/19 10:56 99.1 F 07/05/19 09:00 98.0 F 59 L 18 97/56 93 L Pain Assessment - Last Documented Pain Intensity 3 Pain Scale Used [facility] Intake and Output: Intake & Output 07/04/19 07/05/19 07/06/19 07/07/19 06:59 06:59 06:59 06:59 Intake Total 2145 3720 Output Total 750 Balance 2145 2970 Weight 112.3 kg Lab Results: Lab Results-Last 24 Hours 07/05/19 07/05/19 07/05/19 Range/Units 06:00 06:00 06:00 WBC (4.0-10.5) K/mm3 RBC (4.1-5.6) M/mm3 Hgb (12.5-18.0) gm/dl Hct (42-50) % MCV (78-100) fl MCH (26-32) pg MCHC (32-36) g/dl RDW (11.5-14.0) % Plt Count (150-450) K/mm3 MPV (6-9.5) fl Gran % (36.0-66.0) % Eos # (Auto) (0-0.5) Absolute Lymphs (auto) (1.0-4.6) Absolute Monos (auto) (0.0-1.3) Lymphocytes % (24.0-44.0) % Monocytes % (0.0-12.0) % Eosinophils % (0.00-5.0) % Basophils % (0.0-0.4) % Absolute Granulocytes (1.4-6.9) Basophils # (0-0.4) Sodium (137-145) mmol/L Potassium (3.5-5.1) mmol/L Chloride (98-107) mmol/L Carbon Dioxide (22-30) mmol/L Anion Gap (5-15) MEQ/L BUN (9-20) mg/dL Creatinine (0.66-1.25) mg/dL Estimated GFR ML/MIN Glucose (74-106) mg/dL Calcium (8.4-10.2) mg/dL Iron 34 L (49-181) ug/dL TIBC 285 (261-497) ug/dL Iron Saturation 12 L (20-39) % Vitamin B12 > 1000 H (239-931) pg/mL Hep A IgM Ab Confirm Non Reactive (Non Reactive) 07/06/19 07/06/19 Range/Units 05:22 05:22 WBC 3.0 L (4.0-10.5) K/mm3 RBC 3.73 L (4.1-5.6) M/mm3 Hgb 11.2 L (12.5-18.0) gm/dl Hct 34.7 L (42-50) % MCV 93.0 (78-100) fl MCH 30.0 (26-32) pg MCHC 32.3 (32-36) g/dl RDW 14.8 H (11.5-14.0) % Plt Count 152 (150-450) K/mm3 MPV 10.2 H (6-9.5) fl Gran % 66.2 H (36.0-66.0) % Eos # (Auto) 0.04 (0-0.5) Absolute Lymphs (auto) 0.50 L (1.0-4.6) Absolute Monos (auto) 0.47 (0.0-1.3) Lymphocytes % 16.6 L (24.0-44.0) % Monocytes % 15.6 H (0.0-12.0) % Eosinophils % 1.3 (0.00-5.0) % Basophils % 0.3 (0.0-0.4) % Absolute Granulocytes 2.00 (1.4-6.9) Basophils # 0.01 (0-0.4) Sodium 140 (137-145) mmol/L Potassium 3.9 (3.5-5.1) mmol/L Chloride 112 H (98-107) mmol/L Carbon Dioxide 19 L (22-30) mmol/L Anion Gap 13.2 (5-15) MEQ/L BUN 23 H (9-20) mg/dL Creatinine 1.90 H (0.66-1.25) mg/dL Estimated GFR 38.0 ML/MIN Glucose 90 (74-106) mg/dL Calcium 8.8 (8.4-10.2) mg/dL Iron (49-181) ug/dL TIBC (261-497) ug/dL Iron Saturation (20-39) % Vitamin B12 (239-931) pg/mL Hep A IgM Ab Confirm (Non Reactive) Radiology Exams: Radiology Procedures Category Date Time Status ABDOMEN AND PELVIS W/0 CONTRAS [CT] Stat Exams 07/04/19 20:39 Completed Assessment/Plan (1) Enterocolitis Current Visit: Yes Status: Acute Assessment & Plan: Continue IV fluids and IV metronidazole and IV levofloxacin Day 2. Hep A Ig M was negative. Will check stool culture and ova and parasites. Code(s): K52.9 - NONINFECTIVE GASTROENTERITIS AND COLITIS, UNSPECIFIED (2) UTI (urinary tract infection) Current Visit: Yes Status: Acute Assessment & Plan: Urine culture in lab; WBC count high on micro. Code(s): N39.0 - URINARY TRACT INFECTION, SITE NOT SPECIFIED (3) Iron deficiency anemia Current Visit: Yes Status: Acute Assessment & Plan: Start iron. Code(s): D50.9 - IRON DEFICIENCY ANEMIA, UNSPECIFIED (4) Chronic kidney disease, stage 3 Current Visit: Yes Status: Acute Assessment & Plan: Will plan to refer to nephrology as outpatient. He has seen a kettle chipper in the past but not since he has moved back to the area. From my outpatient records , he last saw Dr. Lashae Estevez (located in [place]) in 2017 and had stage 3 CKD then also. Code(s): N18.3 - CHRONIC KIDNEY DISEASE, STAGE 3 (MODERATE) (5) Hypertension Current Visit: Yes Status: Acute Assessment & Plan: Will restart losartan today. Code(s): I10 - ESSENTIAL (PRIMARY) HYPERTENSION (6) Insomnia Current Visit: Yes Status: Acute Assessment & Plan: Continue current medication. Code(s): G47.00 - INSOMNIA, UNSPECIFIED (7) DVT prophylaxis Current Visit: Yes Status: Acute Assessment & Plan: Continue lovenox. Code(s): Z29.9 - ENCOUNTER FOR PROPHYLACTIC MEASURES, UNSPECIFIED
[2019-07-06] MEDS: NEURONTIN 300 MG PO SCH ×4 (09:24→21:46)
[2019-07-06] MEDS: Flomax 0.4 MG PO SCH (09:25)
[2019-07-06] MEDS: Calcium 500MG W/Vit D Tablet PO SCH ×3 (09:25→21:44)
[2019-07-06] MEDS: ECOTRIN 81 MG PO SCH (09:25)
[2019-07-06] MEDS: CLARITIN 10 MG PO SCH (09:25)
[2019-07-06] MEDS: Flonase NASAL NS SCH (09:25)
[2019-07-06] MEDS: Vitamin B-12 500 MCG PO SCH (09:25)
[2019-07-06] MEDS: FEOSOL 325 MG PO SCH ×2 (09:25→21:45)
[2019-07-06] MEDS: ENOXAPARIN SODIUM SQ SCH (09:26)
[2019-07-06] MEDS: Vitamin B-6 (Pyridoxine) 100 MG PO SCH (09:26)
[2019-07-06 09:42] LABS: Slide Review 1 YES
[2019-07-06] MEDS: Sodium Chloride 0.9% 1000 ML 1,000 ML IV SCH (13:45)
[2019-07-06] MEDS ORDERED: Zofran 4 MG/2 ML VIAL IV PRN (14:17)
[2019-07-06 16:43] LABS: C. Difficile Organism NEGATIVE (NEGATIVE); Campylobacter NEGATIVE (NEGATIVE)
[2019-07-06 16:44] LABS: Adenovirus F 40/41 NEGATIVE (NEGATIVE); Astrovirus NEGATIVE (NEGATIVE); Cryptosporidium NEGATIVE (NEGATIVE); Cyclospora cayentanensis NEGATIVE (NEGATIVE); Entamoeaba histolytica NEGATIVE (NEGATIVE); Enteroaggregative E.coli NEGATIVE (NEGATIVE); Enteropathogenic E.coli POSITIVE (NEGATIVE); Enterotoxigenic E.coli NEGATIVE (NEGATIVE); Giardia lamblia NEGATIVE (NEGATIVE); Norovirus GI/GII NEGATIVE (NEGATIVE); Plesiomonas shigelloides NEGATIVE (NEGATIVE); Rotavirus A NEGATIVE (NEGATIVE); Salmonella NEGATIVE (NEGATIVE); Sapovirus NEGATIVE (NEGATIVE); Shiga-like toxin prod.E.coli NEGATIVE (NEGATIVE); Vibrio NEGATIVE (NEGATIVE); Vibrio cholerae NEGATIVE (NEGATIVE); Yersinia enterocolitica NEGATIVE (NEGATIVE)
[2019-07-06] MEDS: ATARAX 25 MG PO SCH (21:43)
[2019-07-06] MEDS: Levofloxacin 500MG/100ML D5W 500 MG/100 ML BAG IV SCH (21:47)
[2019-07-06] MEDS: NON-FORMULARY ITEM PO SCH (21:47)
[2019-07-07] MEDS: FLAGYL 500 MG IVPB 500 MG/100 ML BAG IV SCH ×2 (00:46→06:35)
[2019-07-07] MEDS: Sodium Chloride 0.9% 1000 ML 1,000 ML IV SCH (00:46)
[2019-07-07 05:06] LABS: BASOPHIL % 0.2 % (0.0-0.4); Basophil (Absolute #) 0.01 (0-0.4); Eosinophil % 2.1 % (0.00-5.0); Granulocyte Absolute (ANC) 3.24 (1.4-6.9); Granulocytes % 68.8 % (36.0-66.0); Hematocrit 31.7 % (42-50); Hemoglobin 10.3 gm/dl (12.5-18.0); Lymphocyte (Absolute #) 0.73 (1.0-4.6); Lymphocytes % 15.5 % (24.0-44.0); Mean Corpuscular Hemoglobin 30.2 pg (26-32); Mean Corpuscular Hgb Concent. 32.5 g/dl (32-36); Monocyte (Absolute #) 0.63 (0.0-1.3); Monocytes % 13.4 % (0.0-12.0); Platelet Count 170 K/mm3 (150-450); Red Blood Count 3.41 M/mm3 (4.1-5.6); Red Cell Distribution Width 14.8 % (11.5-14.0); White Blood Count 4.7 K/mm3 (4.0-10.5)
[2019-07-07 05:30] LABS: Calcium 8.4 mg/dL (8.4-10.2); Creatinine 1 1.74 mg/dL (0.66-1.25); Potassium 4.1 mmol/L (3.5-5.1)
[2019-07-07 08:08] VITALS: BP 126/78; PULSE 67; O2SAT 93
--- NOTE | 2019-07-07 08:49 | PCM.DS ---
Discharge Summary Date of Admission: 07/04/19 23:27 Date of Discharge: 07/07/2019 Admitting Physician: NOAH TORRES Primary Care Provider: NOAH TORRES Allergies Allergies No Known Drug Allergies Allergy (Verified 07/04/19 20:20) Hospital Summary - Hospital Course Hospital Course: Pt. admitted through ER on 07/04/19. Pt. was diagnosed with enterocolitis and ileus. Pt. initiated on abx levaquin and flagyl. Stool sample sent and returned positive for e-coli, sensitivity to levaquin confirmed. Pt. was NPO , 07/05. Diet initiated on 07/06, pt. did experience some increase in nausea, requiring increased frequency of zofran. Pt. had a good night and tolerated breakfast with no issues on the am of 07/07 and felt to be ready to go home. - Vitals & Intake/Output Vital Signs: Vital Signs Temperature 98.5 F 07/07/19 08:00 Pulse Rate 67 07/07/19 08:00 Respiratory Rate 18 07/07/19 08:00 Blood Pressure 126/78 07/07/19 08:00 O2 Sat by Pulse Oximetry 93 L 07/07/19 08:00 Intake & Output: Intake & Output 07/04/19 07/05/19 07/06/19 07/07/19 11:59 11:59 11:59 11:59 Intake Total 2725 3500 3263 Output Total 750 Balance 2725 2750 3263 Weight 112.3 kg 110 kg - Lab Result Diagrams: 07/07/19 04:38 07/07/19 04:38 Lab Results-Last 24 Hrs: Lab Results-Last 24 Hours 07/06/19 07/06/19 07/07/19 Range/Units 05:22 11:07 04:38 WBC 4.7 (4.0-10.5) K/mm3 RBC 3.41 L (4.1-5.6) M/mm3 Hgb 10.3 L (12.5-18.0) gm/dl Hct 31.7 L (42-50) % MCV 93.0 (78-100) fl MCH 30.2 (26-32) pg MCHC 32.5 (32-36) g/dl RDW 14.8 H (11.5-14.0) % Plt Count 170 (150-450) K/mm3 MPV 10.0 H (6-9.5) fl Gran % 68.8 H (36.0-66.0) % Eos # (Auto) 0.10 (0-0.5) Absolute Lymphs (auto) 0.73 L (1.0-4.6) Absolute Monos (auto) 0.63 (0.0-1.3) Lymphocytes % 15.5 L (24.0-44.0) % Monocytes % 13.4 H (0.0-12.0) % Eosinophils % 2.1 (0.00-5.0) % Basophils % 0.2 (0.0-0.4) % Absolute Granulocytes 3.24 (1.4-6.9) Basophils # 0.01 (0-0.4) Sodium (137-145) mmol/L Potassium (3.5-5.1) mmol/L Chloride (98-107) mmol/L Carbon Dioxide (22-30) mmol/L Anion Gap (5-15) MEQ/L BUN (9-20) mg/dL Creatinine (0.66-1.25) mg/dL Estimated GFR ML/MIN Glucose (74-106) mg/dL Calcium (8.4-10.2) mg/dL Stl C. cayetanensis PCR NEGATIVE (NEGATIVE) Stl Adenov F 40/41 PCR NEGATIVE (NEGATIVE) Stool Astrovirus (PCR) NEGATIVE (NEGATIVE) Stool Cryptosporidium PCR NEGATIVE (NEGATIVE) Stool EPEC (PCR) POSITIVE A (NEGATIVE) Stool EAEC (PCR) NEGATIVE (NEGATIVE) Stl E. histolytica PCR NEGATIVE (NEGATIVE) Stl P. shigelloides PCR NEGATIVE (NEGATIVE) Stool Sapovirus (PCR) NEGATIVE (NEGATIVE) St Y.enterocolitica PCR NEGATIVE (NEGATIVE) Stool Vibrio (PCR) NEGATIVE (NEGATIVE) Stl Vibrio cholerae PCR NEGATIVE (NEGATIVE) Stl Norovirus GI/GII PCR NEGATIVE (NEGATIVE) Campylobacter (PCR) NEGATIVE (NEGATIVE) C. difficile (PCR) NEGATIVE (NEGATIVE) Enterotoxigenic E. coli NEGATIVE (NEGATIVE) E.coli Shiga Toxins NEGATIVE (NEGATIVE) Giardia lamblia NEGATIVE (NEGATIVE) Rotavirus A (PCR) NEGATIVE (NEGATIVE) Salmonella (PCR) NEGATIVE (NEGATIVE) Shigella (PCR) NEGATIVE (NEGATIVE) Slides for Path Review YES 07/07/19 Range/Units 04:38 WBC (4.0-10.5) K/mm3 RBC (4.1-5.6) M/mm3 Hgb (12.5-18.0) gm/dl Hct (42-50) % MCV (78-100) fl MCH (26-32) pg MCHC (32-36) g/dl RDW (11.5-14.0) % Plt Count (150-450) K/mm3 MPV (6-9.5) fl Gran % (36.0-66.0) % Eos # (Auto) (0-0.5) Absolute Lymphs (auto) (1.0-4.6) Absolute Monos (auto) (0.0-1.3) Lymphocytes % (24.0-44.0) % Monocytes % (0.0-12.0) % Eosinophils % (0.00-5.0) % Basophils % (0.0-0.4) % Absolute Granulocytes (1.4-6.9) Basophils # (0-0.4) Sodium 142 (137-145) mmol/L Potassium 4.1 (3.5-5.1) mmol/L Chloride 114 H (98-107) mmol/L Carbon Dioxide 20 L (22-30) mmol/L Anion Gap 11.0 (5-15) MEQ/L BUN 17 (9-20) mg/dL Creatinine 1.74 H (0.66-1.25) mg/dL Estimated GFR 42.1 ML/MIN Glucose 101 (74-106) mg/dL Calcium 8.4 (8.4-10.2) mg/dL Stl C. cayetanensis PCR (NEGATIVE) Stl Adenov F 40/41 PCR (NEGATIVE) Stool Astrovirus (PCR) (NEGATIVE) Stool Cryptosporidium PCR (NEGATIVE) Stool EPEC (PCR) (NEGATIVE) Stool EAEC (PCR) (NEGATIVE) Stl E. histolytica PCR (NEGATIVE) Stl P. shigelloides PCR (NEGATIVE) Stool Sapovirus (PCR) (NEGATIVE) St Y.enterocolitica PCR (NEGATIVE) Stool Vibrio (PCR) (NEGATIVE) Stl Vibrio cholerae PCR (NEGATIVE) Stl Norovirus GI/GII PCR (NEGATIVE) Campylobacter (PCR) (NEGATIVE) C. difficile (PCR) (NEGATIVE) Enterotoxigenic E. coli (NEGATIVE) E.coli Shiga Toxins (NEGATIVE) Giardia lamblia (NEGATIVE) Rotavirus A (PCR) (NEGATIVE) Salmonella (PCR) (NEGATIVE) Shigella (PCR) (NEGATIVE) Slides for Path Review Micro Results-Entire Visit: Microbiology 07/04/19 20:50 Urine Culture - Final Clean Catch Midstream Escherichia Coli 07/04/19 21:00 Blood Culture - Preliminary Blood NO GROWTH TO DATE 07/04/19 20:50 Blood Culture - Preliminary Blood NO GROWTH TO DATE Discharge Exam General Appearance: no apparent distress, alert Neurologic Exam: alert, cooperative, normal mood/affect, No motor deficits Eye Exam: EOMI Ears, Nose, Throat Exam: normal ENT inspection Neck Exam: normal inspection Respiratory Exam: normal breath sounds, lungs clear, airway intact Cardiovascular Exam: regular rate/rhythm, normal heart sounds Gastrointestinal/Abdomen Exam: soft, normal bowel sounds, No tenderness, No distention, No mass, No guarding Male Genitalia Exam: deferred Rectal Exam: deferred Skin Exam: normal color, warm, dry Final Diagnosis/Problem List - Final Discharge Diagnosis/Problem (1) Chronic kidney disease, stage 3 Current Visit: Yes Status: Chronic Code(s): N18.3 - CHRONIC KIDNEY DISEASE, STAGE 3 (MODERATE) (2) Enterocolitis Current Visit: Yes Status: Acute Code(s): K52.9 - NONINFECTIVE GASTROENTERITIS AND COLITIS, UNSPECIFIED (3) E coli enteritis Current Visit: Yes Status: Acute Code(s): A04.4 - OTHER INTESTINAL ESCHERICHIA COLI INFECTIONS - Discharge Disposition: Home, Self-Care Condition: Stable Prescriptions: New Levofloxacin [Levaquin] 1 tab PO DAILY #7 tablet Ondansetron ODT 4 MG [Zofran Odt 4 mg] 4 mg PO Q6H PRN PRN #10 tab.rapdis PRN Reason: Nausea/Vomiting No Action Aspirin [Aspirin EC] 81 mg PO DAILY Cyanocobalamin (Vitamin B-12) [Vitamin B-12] 2,500 mcg PO DAILY Hydroxychloroquine Sulfate [Plaquenil] 200 mg PO BID Tamsulosin HCl 0.4 mg [Flomax 0.4 MG] 0.4 mg PO DAILY Melatonin/Pyridoxine [Melatonin 5 mg Tablet] 3 each PO HS PRN PRN PRN Reason: Insomnia Calcium Citrate/Vitamin D3 [Calcium Cit-Vit D 250-200 Tab] 4 tab PO TID Loratadine [Claritin] 10 mg PO DAILY Losartan Potassium 50 mg PO DAILY cloNIDine HCl [Clonidine HCl] 0.3 mg PO HS Gabapentin [Neurontin] 600 mg PO QID Fluticasone Propionate [Flonase NASAL] 1 spray NS DAILY Lurasidone HCl [Latuda] 80 mg PO DAILY Pyridoxine HCl (Vitamin B6) [B-6] 100 mg PO DAILY Hydroxyzine HCl 2 tab PO HS Follow up with: NOAH TORRES [Primary Care Provider] - 1 Week
[2019-07-07] MEDS: Vitamin B-12 500 MCG PO SCH (09:12)
[2019-07-07] MEDS: NEURONTIN 300 MG PO SCH (09:12)
[2019-07-07] MEDS: FEOSOL 325 MG PO SCH (09:12)
[2019-07-07] MEDS: Calcium 500MG W/Vit D Tablet PO SCH (09:13)
[2019-07-07] MEDS: Flomax 0.4 MG PO SCH (09:13)
[2019-07-07] MEDS: ECOTRIN 81 MG PO SCH (09:13)
[2019-07-07] MEDS: CLARITIN 10 MG PO SCH (09:13)
[2019-07-07] MEDS: ENOXAPARIN SODIUM SQ SCH (09:13)
[2019-07-07] MEDS: Flonase NASAL NS SCH (09:14)
[2019-07-07] MEDS: Vitamin B-6 (Pyridoxine) 100 MG PO SCH (09:14)
[2019-07-07] MEDS: NON-FORMULARY ITEM PO SCH (09:14)
== END 2019-07-07 09:45 | disposition home or self-care (01) ==
LOC: ED 20:13 → MED SURG 23:27
PROVIDERS: ADMIT Internal Medicine; ATTEND Internal Medicine
DX: K52.9 Noninfective gastroenteritis and colitis, unspecified (principal); A04.4 Other intestinal Escherichia coli infections; N18.3 Chronic kidney disease, stage 3 (moderate); D50.9 Iron deficiency anemia, unspecified; N39.0 Urinary tract infection, site not specified; F31.9 Bipolar disorder, unspecified; G47.00 Insomnia, unspecified; Z79.899 Other long term (current) drug therapy
CPT/HCPCS: 36415; 74176; 80048; 80053; 81001; 82150; 82607; 83540; 83550; 83605; 83690; 85025; 86709; 87040; 87077; 87086; 87186; 87507; 96360; 96365; 96368; 96374; 96375; 99284; G0378; J1170; J1650; J1956; J2405; A9270-GY

== ENCOUNTER 2019-07-18 13:28 | Emergency (ER) | payer MEDICARE ==
--- NOTE | 2019-07-18 13:46 | ERPHSYRPT ---
- History of Present Illness Time Seen by Provider: 07/18/19 13:46 Historian: patient Exam Limitations: no limitations Patient Subjective Stated Complaint: Pt has been constipated for the past 2 days and now feels like it's down there but stuck Triage Nursing Assessment: Pt walked into the ER holding his abdomen, hypertensive, tachycardic, diaphoretic, went to the restroom while being triaged and said a little came out, appears very uncomfortable, bowel sounds heard in all 4, rates pain 8/10 Physician History: 64 y/o white male patient of Dr. Torres, presents to ED with 2 day h/o constipation. pt seen by me 07/04/19 for diarrhea and found to have a uti and enterocolitis. pt was placed on levaquin and flagyl at that time. pt states he is still on levaquin. pt states he had e. coli. he has associated generalized abd pain. Timing/Duration: day(s) (2) Activities at Onset: none Quality: cramping, pressure Abdominal Pain Onset Location: generalized abdomen Pain Radiation: no radiation Severity of Pain-Max: moderate Severity of Pain-Current: moderate Modifying Factors: Improves With: nothing Associated Symptoms: other (constipation) Previous symptoms: no prior history Allergies/Adverse Reactions: No Known Drug Allergies Allergy (Verified 07/18/19 13:40) Home Medications: Aspirin [Aspirin EC] 81 mg PO DAILY 06/27/16 [History] Cyanocobalamin (Vitamin B-12) [Vitamin B-12] 2,500 mcg PO DAILY 06/27/16 [ History] Hydroxychloroquine Sulfate [Plaquenil] 200 mg PO BID 06/27/16 [History] Tamsulosin HCl 0.4 mg [Flomax 0.4 MG] 0.4 mg PO DAILY 06/27/16 [History] Calcium Citrate/Vitamin D3 [Calcium Cit-Vit D 250-200 Tab] 4 tab PO TID [History] Melatonin/Pyridoxine [Melatonin 5 mg Tablet] 3 each PO HS PRN PRN 06/28/16 [ History] Loratadine [Claritin] 10 mg PO DAILY 06/20/17 [History] Losartan Potassium 50 mg PO DAILY 06/20/17 [History] Gabapentin [Neurontin] 600 mg PO QID 07/12/17 [History] cloNIDine HCl [Clonidine HCl] 0.3 mg PO HS 07/12/17 [History] Fluticasone Propionate [Flonase NASAL] 1 spray NS DAILY 08/28/18 [History] Lurasidone HCl [Latuda] 80 mg PO DAILY 08/28/18 [History] Pyridoxine HCl (Vitamin B6) [B-6] 100 mg PO DAILY 08/28/18 [History] Hydroxyzine HCl 2 tab PO HS 07/04/19 [History] Hx Tetanus, Diphtheria Vaccination/Date Given: Yes Hx Influenza Vaccination/Date Given: Yes Hx Pneumococcal Vaccination/Date Given: Yes - Review of Systems Constitutional: No Symptoms Eyes: No Symptoms Ears, Nose, & Throat: No Symptoms Respiratory: No Symptoms Cardiac: No Symptoms Abdominal/Gastrointestinal: Abdominal Pain, Constipation Genitourinary Symptoms: No Symptoms Musculoskeletal: No Symptoms Skin: No Symptoms Neurological: No Symptoms Psychological: No Symptoms Endocrine: No Symptoms Hematologic/Lymphatic: No Symptoms Immunological/Allergic: No Symptoms All Other Systems: Reviewed and Negative - Past Medical History Pertinent Past Medical History: Yes Neurological History: Migraines, Peripheral Neuropathy ENT History: Cataracts Cardiac History: Hypertension Respiratory History: No Pertinent History Endocrine Medical History: Adrenal Insufficiency Musculoskeletal History: Degenerative Disk Disease, Osteoarthritis GI Medical History: Hernia History: Other Psycho-Social History: Bipolar, Depression Male Reproductive Disorders: Other Other Medical History: Pt has had 7 back surgeries, two fusions, last surgery in 2005, B TKA, R GLENDY, Cervical fusion x 2. Stage 3 kidney failure, removal of fatty tumor from neck, Bundle branch blockage, MRSA x3 back from back sx, Myelodysplasatic Syndrome - Past Surgical History Past Surgical History: Yes Neuro Surgical History: No Pertinent History Cardiac: Cardiac Catheterization Respiratory: No Pertinent History Gastrointestinal: Appendectomy, Cholecystectomy Genitourinary: No Pertinent History Musculoskeletal: Joint Replacement, Orthopedic Surgery, Other Male Surgical History: No Pertinent History Other Surgical History: BOTH KNEES REPLACED. RIGHT HIP. 7 BACK OPERATIONS. GASTRIC BYP-ASS. 8 KIDNES STONES REMOVED. 2 CERVICAL FUSIONS. 2 HERNIA REPAIRS - Social History Smoking Status: Former smoker How long have you smoked: 4 years Exposure to second hand smoke: No Drug Use: none Patient Lives Alone: No - Nursing Vital Signs Nursing Vital Signs: Initial Vital Signs Temperature 97.8 F 07/18/19 13:32 Pulse Rate 128 H 07/18/19 13:32 Blood Pressure 158/122 07/18/19 13:32 O2 Sat by Pulse Oximetry 99 07/18/19 13:32 Pain Scale Pain Intensity 8 - Physical Exam General Appearance: mild distress, alert, anxiety Eye Exam: PERRL/EOMI, eyes nml inspection Ears, Nose, Throat Exam: normal ENT inspection, moist mucous membranes Neck Exam: normal inspection, non-tender, supple, full range of motion Respiratory Exam: normal breath sounds, lungs clear, airway intact, No chest tenderness, No respiratory distress Cardiovascular Exam: tachycardia Gastrointestinal/Abdomen Exam: soft, normal bowel sounds, tenderness (mild generalized), No guarding, No rebound Back Exam: normal inspection, normal range of motion, No CVA tenderness, No vertebral tenderness Extremity Exam: normal inspection, normal range of motion, pelvis stable Neurologic Exam: alert, oriented x 3, cooperative, slip cover operator II-XII nml as tested Skin Exam: normal color, warm, dry Lymphatic Exam: No adenopathy SpO2 Interpretation: normal SpO2: 99 O2 Delivery: Room Air Ordered Tests: Active Orders 24 hr Category Date Time Status IV Insertion STAT Care 07/18/19 13:55 Active ABDOMEN AND PELVIS W/0 CONTRAS [CT] Stat Exams 07/18/19 13:55 Completed AMYLASE Stat Lab 07/18/19 14:30 Completed BLOOD CULTURE Stat Lab 07/18/19 14:25 Received CBC W DIFF Stat Lab 07/18/19 14:30 Completed CMP Stat Lab 07/18/19 14:30 Completed LIPASE Stat Lab 07/18/19 14:30 Completed Lactic Acid Stat Lab 07/18/19 14:43 Results Medication Summary Generic Name Dose Route Start Last Admin Trade Name Omidq PRN Reason Stop Dose Admin Sodium Chloride 1,000 mls @ 100 mls/hr 07/18/19 14:00 07/18/19 14:22 Sodium Chloride 0.9% 1000 Ml IV 08/17/19 13:59 100 mls/hr .Q10H SURESH Administration Lab/Rad Data: Laboratory Result Diagrams 07/18/19 14:30 07/18/19 14:30 Laboratory Results 07/18/19 07/18/19 07/18/19 Range/Units 14:43 14:30 14:30 WBC 4.3 (4.0-10.5) K/mm3 RBC 3.74 L (4.1-5.6) M/mm3 Hgb 11.0 L (12.5-18.0) gm/dl Hct 34.4 L (42-50) % MCV 92.0 (78-100) fl MCH 29.4 (26-32) pg MCHC 32.0 (32-36) g/dl RDW 14.8 H (11.5-14.0) % Plt Count 221 (150-450) K/mm3 MPV 9.8 H (6-9.5) fl Gran % 78.8 H (36.0-66.0) % Eos # (Auto) 0.10 (0-0.5) Absolute Lymphs (auto) 0.38 L (1.0-4.6) Absolute Monos (auto) 0.43 (0.0-1.3) Lymphocytes % 8.8 L (24.0-44.0) % Monocytes % 9.9 (0.0-12.0) % Eosinophils % 2.3 (0.00-5.0) % Basophils % 0.2 (0.0-0.4) % Absolute Granulocytes 3.42 (1.4-6.9) Basophils # 0.01 (0-0.4) Sodium 142 (137-145) mmol/L Potassium 4.2 (3.5-5.1) mmol/L Chloride 109 H (98-107) mmol/L Carbon Dioxide 21 L (22-30) mmol/L Anion Gap 15.8 H (5-15) MEQ/L BUN 22 H (9-20) mg/dL Creatinine 1.64 H (0.66-1.25) mg/dL Estimated GFR 45.0 ML/MIN Glucose 143 H (74-106) mg/dL Lactic Acid 2.0 (0.4-2.0) Calcium 9.1 (8.4-10.2) mg/dL Total Bilirubin 0.30 (0.2-1.3) mg/dL AST 27 (17-59) U/L ALT 24 (0-50) U/L Alkaline Phosphatase 61 (38-126) U/L Serum Total Protein 6.6 (6.3-8.2) g/dL Albumin 3.7 (3.5-5.0) g/dL Amylase 67 (30-110) U/L Lipase 231 (23-300) U/L - Progress Progress: improved Progress Note: 07/18/19 15:16 pt states pain sig improved since he has had a few bms in the ED. ct abd/pelvis-picture c/w severe constipation Counseled pt/family regarding: lab results, diagnosis, need for follow-up, rad results - Departure Departure Disposition: Home Clinical Impression: Constipation Condition: Stable Critical Care Time: No Referrals: NOAH TORRES [Primary Care Provider] - Additional Instructions: drink plenty of clear liquids. increase your activity. drink your bottle of magnesium citrate rapidly as discussed. wait one hour then give yourself a fleets enema rectally. hold enema in as long as possible. follow up with your primary doctor for further management
[2019-07-18] MEDS ORDERED: Sodium Chloride 0.9% 1000 ML 1,000 ML IV SCH (14:00)
[2019-07-18] MEDS ORDERED: Sodium Chloride 0.9% 1000 ML 1,000 ML ONE (14:00)
[2019-07-18 14:38] VITALS: PULSE 88
[2019-07-18 14:40] LABS: BASOPHIL % 0.2 % (0.0-0.4); Basophil (Absolute #) 0.01 (0-0.4); Eosinophil % 2.3 % (0.00-5.0); Granulocyte Absolute (ANC) 3.42 (1.4-6.9); Granulocytes % 78.8 % (36.0-66.0); Hematocrit 34.4 % (42-50); Lymphocyte (Absolute #) 0.38 (1.0-4.6); Lymphocytes % 8.8 % (24.0-44.0); Mean Corpuscular Hemoglobin 29.4 pg (26-32); Mean Platelet Volume 9.8 fl (6-9.5); Monocyte (Absolute #) 0.43 (0.0-1.3); Monocytes % 9.9 % (0.0-12.0); Platelet Count 221 K/mm3 (150-450); Red Blood Count 3.74 M/mm3 (4.1-5.6); Red Cell Distribution Width 14.8 % (11.5-14.0); White Blood Count 4.3 K/mm3 (4.0-10.5)
[2019-07-18 14:53] LABS: ALBUMIN 3.7 g/dL (3.5-5.0); ANION GAP 15.8 MEQ/L (5-15); BILIRUBIN,TOTAL 0.3 mg/dL (0.2-1.3); Calcium 9.1 mg/dL (8.4-10.2); Creatinine 1 1.64 mg/dL (0.66-1.25); Potassium 4.2 mmol/L (3.5-5.1); Total Protein 6.6 g/dL (6.3-8.2)
--- NOTE | 2019-07-18 15:11 | XRAY ---
Exam: CT of the abdomen and pelvis without IV contrast from 07/18/2019. Comparison: CT of the abdomen and pelvis without IV contrast from 07/04/2019. Indication: Abdominal pain, constipation, history of multiple prior surgeries. Technique: Non-IV contrast axial images were obtained through the abdomen and pelvis. Reconstructed coronal and sagittal images were created and reviewed. Findings: The AP CT athletic scout image reveals a large amount of stool scattered throughout the colon consistent with severe constipation. There is a mild upper lumbar rotary dextroscoliosis, history of prior multilevel lumbar laminectomy and bilateral posterior surgical fusion of L2-S1 with paired orthopedic rods and pedicle screws. I also see surgical clips within the right upper quadrant suggestive of prior cholecystectomy. There is a right total hip replacement. Some surgical suture material is seen overlying the right inguinal region. The lung bases reveal minimal focal scarring/atelectasis at the anterior right lung base. In addition, I note some calcified pleural plaque and tiny calcifications near both posterior lung sulci representing no change. No new basilar infiltrates or posterior pleural fluid is seen. I again note mild concentric soft tissue prominence about the distal thoracic esophageal wall. See axial images #11 through #14. This might be due to GERD or esophagitis. Correlate clinically. I note numerous surgical clips/sutures within the medial aspect of the left upper quadrant suggestive of prior gastric bypass surgery. No oral contrast was given. There are numerous surgical clips within the right upper quadrant consistent with prior cholecystectomy and perhaps bowel surgery. This is unchanged. The liver is not enlarged. No gross hepatic mass or intrahepatic biliary duct distention is seen. The spleen again appears mildly enlarged measuring about 14.2 cm in greatest transverse diameter. No focal splenic mass is seen. The pancreas reveals no significant abnormality. The adrenal glands appear unremarkable. There is a stable 6 cm in diameter cyst within the upper pole of the right kidney measuring +14 Hounsfield units. No other renal masses, hydronephrosis, or renal calculi are seen. The ureters do not appear dilated. The abdominal aorta is tortuous and of normal diameter. No abnormal retroperitoneal lymphadenopathy is seen. There is no free intraperitoneal air or ventral abdominal wall hernia. There is a tiny amount of intraperitoneal fat protruding into the base of the umbilicus on sagittal image #106. I again note a large amount of stool scattered throughout the entire colon consistent with severe constipation. Significant fluid-filled small bowel and colon on the prior CT study is no longer seen. The bowel is not pathologically distended. The appendix was reported to be surgically absent on a prior study, and this structure is not visualized. No bowel wall thickening is seen. Artifact from the patient's right hip arthroplasty is seen. There is no free intraperitoneal fluid. The prostate gland is enlarged measuring 6.2 cm in width and demonstrates some calcification within its central aspect. This is unchanged. No other abnormal pelvic mass or enlarged pelvic lymph nodes are seen. I again see evidence of multilevel laminectomy of at least L3-L5 and perhaps partially at L2 as well. Posterior orthopedic fusion is seen from L2-S1 with paired rods and 4 pedicle screws on the right and 5 pedicle screws on the left. Mild dextroscoliosis centered near the thoracolumbar junction is seen. Large osteophytes are noted within the lower thoracic and upper lumbar spine. I see no acute fracture or aggressive bone lesion. Impression: 1. There is a large amount of stool scattered throughout the entire colon consistent with severe constipation. I see no evidence of bowel obstruction. 2. The patient is status post multiple prior surgeries including gastric bypass surgery, cholecystectomy, appendectomy, right inguinal hernia repair, multilevel lumbar laminectomy and posterior lumbar surgical fusion, and right hip replacement. 3. There is moderate prostatomegaly with coarse calcifications seen within the central aspect of the prostate gland. This is unchanged from 07/04/2019. 4. I again see mild concentric wall thickening of the distal thoracic esophagus wall, mild splenomegaly, and a moderate sized cyst within the upper pole of the right kidney. 5. No other acute process is seen within the abdomen or pelvis.
[2019-07-18] MEDS ORDERED: CITROMA 296 ML PO ONE (15:20)
[2019-07-18 15:23] VITALS: BP 109/67
[2019-07-18] MEDS ORDERED: CITROMA 296 ML ONE (15:29)
[2019-07-18 15:40] LABS: Slide Review 1 YES
[2019-07-18 15:42] VITALS: O2SAT 98
== END 2019-07-18 15:41 | disposition home or self-care (01) ==
LOC: ED 13:28
DX: K59.00 Constipation, unspecified (principal)
CPT/HCPCS: 36000; 36415; 74176; 80053; 82150; 83605; 83690; 85025; 87040; 96360; 99284; A9270-GY

== ENCOUNTER 2020-02-05 18:15 | Emergency (ER) | payer MEDICARE ==
[2020-02-05] MEDS ORDERED: XYLOCAINE 1% HCL 20 ML MDV IJ ONE (18:16)
[2020-02-05] MEDS ORDERED: Rocephin 1000 MG INJ IM ONE (18:31)
[2020-02-05] MEDS ORDERED: Sodium Chloride 0.9% 1000 ML 1,000 ML IV STA (18:31)
--- NOTE | 2020-02-05 18:42 | ERPHSYRPT ---
- History of Present Illness Time Seen by Provider: 02/05/20 18:35 Source: patient Exam Limitations: no limitations Patient Subjective Stated Complaint: pt reports lower back pain, states he feels like someone has beat him in the back. pt reports some pain with urination. pt reports he has decreased water intake, states he has been drinking more tea and soda than normal. pt reports history of UTI, pt reports he is concerned for UTI. Triage Nursing Assessment: pt is aox3, pupils perrl, afebrile, resps easy and non labored, cap refill < 3 seconds, abd soft non tender, pt skin pink, warm, slightly moist. Physician History: Patient is a 64-year-old male presents to our ED with complaints of low back pain, dysuria and fever at homex1 day. Patient has a history of urinary tract infection. Patient presents to our ED with the same. Patient advises staff that he spiked a fever of 103 at home. Patient is currently afebrile. Patient states he took an oral antipyretic prior to arrival. Pain described as an ache that is localized. No radiation. No specific worsening or improving factors. No trauma. No change in bowel bladder function. No saddle anesthesia. Patient advised staff that he has chronic renal insufficiency. He has had a urinary tract infection in the past as well. Patient states his symptoms today are very similar. Patient voices no other complaints at this time. 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 Associated Symptoms: No abdominal pain, No cough, No headache, No shortness of breath, No sore throat, No stiff neck International travel in last 2 weeks: No Allergies/Adverse Reactions: No Known Drug Allergies Allergy (Verified 07/18/19 13:40) Home Medications: Aspirin [Aspirin EC] 81 mg PO DAILY 06/27/16 [History] Cyanocobalamin (Vitamin B-12) [Vitamin B-12] 2,500 mcg PO DAILY 06/27/16 [ History] Hydroxychloroquine Sulfate [Plaquenil] 200 mg PO BID 06/27/16 [History] Tamsulosin HCl 0.4 mg [Flomax 0.4 MG] 0.4 mg PO DAILY 06/27/16 [History] Calcium Citrate/Vitamin D3 [Calcium Cit-Vit D 250-200 Tab] 4 tab PO TID [History] Melatonin/Pyridoxine [Melatonin 5 mg Tablet] 3 each PO HS PRN PRN 06/28/16 [ History] Loratadine [Claritin] 10 mg PO DAILY 06/20/17 [History] Losartan Potassium 50 mg PO DAILY 06/20/17 [History] Gabapentin [Neurontin] 600 mg PO QID 07/12/17 [History] cloNIDine HCL [Clonidine HCl] 0.3 mg PO HS 07/12/17 [History] Fluticasone Propionate [Flonase NASAL] 1 spray NS DAILY 08/28/18 [History] Lurasidone HCl [Latuda] 80 mg PO DAILY 08/28/18 [History] Pyridoxine HCl (Vitamin B6) [B-6] 100 mg PO DAILY 08/28/18 [History] Hydroxyzine HCl 2 tab PO HS 07/04/19 [History] Hx Tetanus, Diphtheria Vaccination/Date Given: Yes Hx Influenza Vaccination/Date Given: Yes Hx Pneumococcal Vaccination/Date Given: Yes Immunizations Up to Date: No Travel Risk - International Travel Have you traveled outside of the country in past 3 weeks: No Have you or anyone close to you been diagnosed with or: No Do your reside in a community with a known COVID-19 case?: Yes If Yes where:: [place] - Coronavirus Screening Has patient experienced Coronavirus symptoms: No Symptoms experienced: fever(equal or > 100.4 F) - Review of Systems Constitutional: No Symptoms, No Fever, No Chills Eyes: No Symptoms Ears, Nose, & Throat: No Symptoms Respiratory: No Symptoms, No Cough, No Dyspnea Cardiac: No Symptoms, No Chest Pain, No Edema, No Syncope Abdominal/Gastrointestinal: No Symptoms, No Abdominal Pain, No Nausea, No Vomiting, No Diarrhea Genitourinary Symptoms: Dysuria, No Hematuria, No Urinary Retention, No Testicle Pain Musculoskeletal: No No Symptoms, No Back Pain, No Neck Pain Skin: No No Symptoms, No Rash Neurological: No No Symptoms, No Dizziness, No Focal Weakness, No Sensory Changes Psychological: No Symptoms Endocrine: No Symptoms Hematologic/Lymphatic: No No Symptoms Immunological/Allergic: No No Symptoms All Other Systems: Reviewed and Negative - Past Medical History Pertinent Past Medical History: Yes Neurological History: Migraines, Peripheral Neuropathy ENT History: Cataracts Cardiac History: Hypertension Respiratory History: No Pertinent History Endocrine Medical History: Adrenal Insufficiency Musculoskeletal History: Degenerative Disk Disease, Osteoarthritis GI Medical History: Hernia History: Other Psycho-Social History: Bipolar, Depression Male Reproductive Disorders: Other Other Medical History: Pt has had 7 back surgeries, two fusions, last surgery in 2005, B TKA, R GLENDY, Cervical fusion x 2. Stage 3 kidney failure, removal of fatty tumor from neck, Bundle branch blockage, MRSA x3 back from back sx, Myelodysplasatic Syndrome - Past Surgical History Past Surgical History: Yes Neuro Surgical History: No Pertinent History Cardiac: Cardiac Catheterization Respiratory: No Pertinent History Gastrointestinal: Appendectomy, Cholecystectomy Genitourinary: No Pertinent History Musculoskeletal: Joint Replacement, Orthopedic Surgery, Other Male Surgical History: No Pertinent History Other Surgical History: BOTH KNEES REPLACED. RIGHT HIP. 7 BACK OPERATIONS. GASTRIC BYP-ASS. 8 KIDNES STONES REMOVED. 2 CERVICAL FUSIONS. 2 HERNIA REPAIRS - Social History Smoking Status: Former smoker How long have you smoked: 4 years Exposure to second hand smoke: No Drug Use: none Patient Lives Alone: No - Nursing Vital Signs Nursing Vital Signs: Initial Vital Signs Temperature 98.9 F 02/05/20 18:27 Pulse Rate 92 H 02/05/20 18:27 Respiratory Rate 20 02/05/20 18:27 Blood Pressure 138/75 02/05/20 18:27 O2 Sat by Pulse Oximetry 97 02/05/20 18:27 Pain Scale Pain Intensity 8 - Physical Exam General Appearance: no apparent distress, alert Eye Exam: PERRL/EOMI ENT Exam: normal ENT inspection, No pharyngeal erythema, No tonsillar exudate Neck Exam: normal inspection, supple, full range of motion, No meningismus Respiratory Exam: normal breath sounds, lungs clear, no respiratory distress Cardiovascular/Chest Exam: normal heart sounds, regular rate/rhythm, No murmur, No edema Gastrointestinal/Abdominal Exam: soft, non tender, no distention Extremity Exam: non-tender, normal range of motion, normal inspection, normal capillary refill Neurologic Exam: alert, oriented x 3, cooperative, frame bender II-XII nml as tested, normal mood/affect, sensation nml, No motor deficits Skin Exam: normal color, warm, dry, No rash SpO2 Interpretation: normal SpO2: 97 O2 Delivery: Room Air (Low back tenderness to palpation. Mild CVA tenderness bilaterally.) - Course Nursing assessment & vital signs reviewed: Yes - CT Exams Abdomen/Pelvis CT Interpretation: Tele-radiologist Report (Mild fecal stasis, esophageal circumferential wall thickening, right renal cyst, enlarged prostate, right inguinal hernia) Ordered Tests: Active Orders 24 hr Category Date Time Status Shooter Helper STAT Care 02/05/20 18:32 Active IV Insertion STAT Care 02/05/20 18:31 Active Pulse Oximetry (ED) STAT Care 02/05/20 18:31 Active ABDOMEN AND PELVIS W/0 CONTRAS [CT] Stat Exams 02/05/20 18:32 Taken BLOOD CULTURE Stat Lab 02/05/20 19:14 Received CBC W DIFF Stat Lab 02/05/20 18:35 Completed CMP Stat Lab 02/05/20 18:35 Completed CULTURE,URINE Stat Lab 02/05/20 18:25 Received Lactic Acid Stat Lab 02/05/20 18:36 Completed UA W/RFX UR CULTURE Stat Lab 02/05/20 18:25 Completed Medication Summary Discontinued Medications Generic Name Dose Route Start Last Admin Trade Name Freq PRN Reason Stop Dose Admin Ceftriaxone Sodium 1,000 mg 02/05/20 18:31 02/05/20 19:27 Rocephin 1000 Mg Inj IM 02/05/20 18:32 1,000 mg STAT ONE Administration Ceftriaxone Sodium Confirm 02/05/20 19:22 Rocephin 1000 Mg Inj Administered 02/05/20 19:23 Dose 1,000 mg .ROUTE .STK-MED ONE Sodium Chloride 1,000 mls @ 999 mls/hr 02/05/20 18:31 02/05/20 19:27 Sodium Chloride 0.9% 1000 Ml IV 02/05/20 19:31 999 mls/hr .Q1H1M STA Administration Sodium Chloride Confirm 02/05/20 19:22 Sodium Chloride 0.9% 1000 Ml Administered 02/05/20 19:23 Dose 1,000 mls @ ud .ROUTE .STK-MED ONE Lab/Rad Data: Laboratory Result Diagrams 02/05/20 18:35 02/05/20 18:35 Laboratory Results 02/05/20 02/05/20 02/05/20 Range/Units 18:36 18:35 18:35 WBC 11.1 H (4.0-10.5) K/mm3 RBC 3.55 L (4.1-5.6) M/mm3 Hgb 10.6 L (12.5-18.0) gm/dl Hct 33.0 L (42-50) % MCV 93.0 (78-100) fl MCH 29.9 (26-32) pg MCHC 32.1 (32-36) g/dl RDW 15.3 H (11.5-14.0) % Plt Count 214 (150-450) K/mm3 MPV 10.4 (7.5-11.0) fl Gran % 88.0 H (36.0-66.0) % Eos # (Auto) 0.03 (0-0.5) Absolute Lymphs (auto) 0.56 L (1.0-4.6) Absolute Monos (auto) 0.72 (0.0-1.3) Lymphocytes % 5.1 L (24.0-44.0) % Monocytes % 6.5 (0.0-12.0) % Eosinophils % 0.3 (0.00-5.0) % Basophils % 0.1 (0.0-0.4) % Absolute Granulocytes 9.73 H (1.4-6.9) Basophils # 0.01 (0-0.4) Sodium 137 (137-145) mmol/L Potassium 3.7 (3.5-5.1) mmol/L Chloride 112 H (98-107) mmol/L Carbon Dioxide 16 L* (22-30) mmol/L Anion Gap 13.1 (5-15) MEQ/L BUN 18 (9-20) mg/dL Creatinine 1.60 H (0.66-1.25) mg/dL Estimated GFR 46.3 ML/MIN Glucose 157 H (74-106) mg/dL Lactic Acid 1.1 (0.4-2.0) Calcium 8.6 (8.4-10.2) mg/dL Total Bilirubin 0.50 (0.2-1.3) mg/dL AST 30 (17-59) U/L ALT 25 (0-50) U/L Alkaline Phosphatase 67 (38-126) U/L Serum Total Protein 6.9 (6.3-8.2) g/dL Albumin 3.9 (3.5-5.0) g/dL Urine Color (YELLOW) Urine Appearance (CLEAR) Urine pH (5-6) Ur Specific Bradley (1.005-1.025) Urine Protein (Negative) Urine Ketones (NEGATIVE) Urine Blood (0-5) Michael/ul Urine Nitrite (NEGATIVE) Urine Bilirubin (NEGATIVE) Urine Urobilinogen (0-1) mg/dL Ur Leukocyte Esterase (NEGATIVE) Urine WBC (Auto) (0-5) /HPF Urine RBC (Auto) (0-2) /HPF U Epithel Cells (Auto) (FEW) /HPF Urine Bacteria (Auto) (NEGATIVE) /HPF Urine Mucus (Auto) (NEGATIVE) /HPF Urine Culture Reflexed (NO) Urine Glucose (NEGATIVE) mg/dL Slides for Path Review YES 02/05/20 Range/Units 18:25 WBC (4.0-10.5) K/mm3 RBC (4.1-5.6) M/mm3 Hgb (12.5-18.0) gm/dl Hct (42-50) % MCV (78-100) fl MCH (26-32) pg MCHC (32-36) g/dl RDW (11.5-14.0) % Plt Count (150-450) K/mm3 MPV (7.5-11.0) fl Gran % (36.0-66.0) % Eos # (Auto) (0-0.5) Absolute Lymphs (auto) (1.0-4.6) Absolute Monos (auto) (0.0-1.3) Lymphocytes % (24.0-44.0) % Monocytes % (0.0-12.0) % Eosinophils % (0.00-5.0) % Basophils % (0.0-0.4) % Absolute Granulocytes (1.4-6.9) Basophils # (0-0.4) Sodium (137-145) mmol/L Potassium (3.5-5.1) mmol/L Chloride (98-107) mmol/L Carbon Dioxide (22-30) mmol/L Anion Gap (5-15) MEQ/L BUN (9-20) mg/dL Creatinine (0.66-1.25) mg/dL Estimated GFR ML/MIN Glucose (74-106) mg/dL Lactic Acid (0.4-2.0) Calcium (8.4-10.2) mg/dL Total Bilirubin (0.2-1.3) mg/dL AST (17-59) U/L ALT (0-50) U/L Alkaline Phosphatase (38-126) U/L Serum Total Protein (6.3-8.2) g/dL Albumin (3.5-5.0) g/dL Urine Color STRAW (YELLOW) Urine Appearance CLEAR (CLEAR) Urine pH 5.0 (5-6) Ur Specific Bradley 1.004 (1.005-1.025) Urine Protein NEGATIVE (Negative) Urine Ketones NEGATIVE (NEGATIVE) Urine Blood SMALL (0-5) Michael/ul Urine Nitrite NEGATIVE (NEGATIVE) Urine Bilirubin NEGATIVE (NEGATIVE) Urine Urobilinogen NEGATIVE (0-1) mg/dL Ur Leukocyte Esterase MODERATE (NEGATIVE) Urine WBC (Auto) 51-100 (0-5) /HPF Urine RBC (Auto) 6-10 (0-2) /HPF U Epithel Cells (Auto) FEW (FEW) /HPF Urine Bacteria (Auto) MODERATE (NEGATIVE) /HPF Urine Mucus (Auto) SLIGHT (NEGATIVE) /HPF Urine Culture Reflexed NO (NO) Urine Glucose NEGATIVE (NEGATIVE) mg/dL Slides for Path Review - Progress Progress: improved Progress Note: 02/05/20 20:36 Patient reassessed. He feels well. Urinary tract infection observed. Antibiotics infused. Patient requesting discharge. Prescription for oral antibiotics sent to his pharmacist. Patient agrees to follow-up with his primary care doctor within 48 hours for reevaluation. Discussed with : Marcellus Counseled pt/family regarding: lab results, diagnosis, need for follow-up, rad results - Departure Departure Disposition: Home Clinical Impression: Esophagitis, Renal cyst, Inguinal hernia, UTI (urinary tract infection), Chronic renal insufficiency Condition: Stable Critical Care Time: No Referrals: NOAH TORRES [Primary Care Provider] - Additional Instructions: Discharge/Care Plan KACI GRANT was seen on 02/05/20 in the Emergency Room. The patient was counseled regarding Diagnosis,Lab results, Imaging studies, need for follow up and when to return to the Emergency Room. Prescriptions given: Discharge Note I have spoken with the patient and/or caregivers. I have explained the patient' s condition, diagnosis and treatment plan based on the information available to me at this time. I have answered the patient's and/or caregiver's questions and addressed any concerns. The patient and/or caregivers have as good understanding of the patient's diagnosis, condition and treatment plan as can be expected at this point. The vital signs have been stable. The patient's condition is stable and appropriate for discharge from the emergency department. The patient will pursue further outpatient evaluation with the primary care physician or other designated or consulting physician as outlined in the discharge instructions. The patient and/or caregivers are agreeable to this plan of care and follow-up instructions have been explained in detail. The patient and/or caregivers have received these instruction. The patient/and or caregivers are aware that any significant change in condition or worsening of symptoms should prompt an immediate return to this or the closest emergency department or call 911. Prescriptions: Cephalexin Mh 500 mg [Keflex 500 mg] 500 mg PO TID #21 capsule
[2020-02-05 18:44] LABS: Absolute Neutrophil Ct (ANC) 9.73 (1.4-6.9); BASOPHIL % 0.1 % (0.0-0.4); Basophil (Absolute #) 0.01 (0-0.4); Eosinophil % 0.3 % (0.00-5.0); Eosinophil (Absolute #) 0.03 (0-0.5); Hemoglobin 10.6 gm/dl (12.5-18.0); Lymphocyte (Absolute #) 0.56 (1.0-4.6); Lymphocytes % 5.1 % (24.0-44.0); Mean Corpuscular Hemoglobin 29.9 pg (26-32); Mean Corpuscular Hgb Concent. 32.1 g/dl (32-36); Mean Platelet Volume 10.4 fl (7.5-11.0); Monocyte (Absolute #) 0.72 (0.0-1.3); Monocytes % 6.5 % (0.0-12.0); Platelet Count 214 K/mm3 (150-450); Red Blood Count 3.55 M/mm3 (4.1-5.6); Red Cell Distribution Width 15.3 % (11.5-14.0); White Blood Count 11.1 K/mm3 (4.0-10.5)
[2020-02-05 19:01] LABS: Appearance CLEAR (CLEAR); Bacteria MODERATE /HPF (NEGATIVE); Bilirubin NEGATIVE (NEGATIVE); Blood SMALL Ery/ul (0-5); Epithelial Cells FEW /HPF (FEW); Glucose NEGATIVE (NEGATIVE); Ketones NEGATIVE (NEGATIVE); Leukocyte Esterase MODERATE (NEGATIVE); Mucus SLIGHT /HPF (NEGATIVE); Nitrite NEGATIVE (NEGATIVE); Protein,Urine Dip NEGATIVE (Negative); Specific Gravity 1.004 (1.005-1.025); Urobilinogen NEGATIVE mg/dL (0-1); WBC 51-100 /HPF (0-5)
[2020-02-05 19:14] LABS: ALBUMIN 3.9 g/dL (3.5-5.0); ANION GAP 13.1 MEQ/L (5-15); BILIRUBIN,TOTAL 0.5 mg/dL (0.2-1.3); Calcium 8.6 mg/dL (8.4-10.2); Creatinine 1 1.6 mg/dL (0.66-1.25); Potassium 3.7 mmol/L (3.5-5.1); Total Protein 6.9 g/dL (6.3-8.2)
[2020-02-05] MEDS ORDERED: Rocephin 1000 MG INJ ONE (19:22)
[2020-02-05] MEDS ORDERED: Sodium Chloride 0.9% 1000 ML 1,000 ML ONE (19:22)
[2020-02-05 19:57] LABS: Slide Review 1 YES
[2020-02-05 20:39] VITALS: BP 127/74
[2020-02-05 20:54] VITALS: PULSE 76; O2SAT 99
--- NOTE | 2020-02-06 08:32 | XRAY ---
Indication: Bilateral kidney pain. Dysuria. Multiple contiguous axial images obtained through the abdomen and pelvis without contrast using renal stone protocol. Comparison: July 18, 2019. Lung bases again demonstrates bibasilar atelectasis/scarring and and minimal bibasilar calcified pleural plaquing. No infiltrate or effusion. Heart is not enlarged. Stable distal esophagus circumferential wall thickening, possible reflux esophagitis. There is again beam artifact from L2-S1 posterior fusion/laminectomy and right hip arthroplasty limiting examination, especially through the pelvis. No renal calculus or evidence for obstructive uropathy in either system. Stable right upper renal simple appearing exophytic cyst and enlarged prostate gland with benign-appearing chunky calcifications. Again gastric bypass surgery and cholecystectomy. Noncontrasted stomach and bowel loops appear nonobstructed. There is again mild diffuse colonic fecal debris throughout, less than before. No free fluid/air. Remaining liver, pancreas, spleen, adrenal glands, kidneys, visualized ureters, and visualized urinary bladder unremarkable for noncontrast exam. Aorta is normal in course and caliber. Osseous structures intact again with mild osteopenia, moderate multilevel degenerative spondylosis, and mild curvature scoliosis. Impression: 1. There remains beam artifact from posterior lumbar spinal hardware and right hip arthroplasty. 2. Negative renal calculus or evidence for obstructive uropathy. Stable right renal cyst and enlarged prostate gland. 3. Again diffuse fecal stasis without obstruction. 4. Stable distal esophageal wall thickening, possible reflux esophagitis. 5. Stable bibasilar calcified pleural plaquing and chronic bony findings.
== END 2020-02-05 20:54 | disposition home or self-care (01) ==
LOC: ED 18:15
DX: K20.9 Esophagitis, unspecified (principal); N28.1 Cyst of kidney, acquired; K40.90 Unilateral inguinal hernia, without obstruction or gangrene, not specified as recurrent; N39.0 Urinary tract infection, site not specified; N18.3 Chronic kidney disease, stage 3 (moderate); I10 Essential (primary) hypertension; Z79.899 Other long term (current) drug therapy; M54.5 Low back pain
CPT/HCPCS: 36415; 74176; 80053; 81001; 83605; 85025; 87040; 87077; 87086; 87186; 93041; 94760; 96360; 96372; 99284; J0696

== ENCOUNTER 2020-04-16 03:12 | Emergency (ER) | payer MEDICARE ==
[2020-04-16] MEDS ORDERED: TYLENOL 325 MG PO STA ×2 (03:20→06:15)
[2020-04-16] MEDS ORDERED: Sodium Chloride 0.9% 1000 ML 1,000 ML IV STA (03:20)
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
[2020-04-16] MEDS ORDERED: Sodium Chloride 0.9% 1000 ML 1,000 ML ONE (03:40)
[2020-04-16] MEDS ORDERED: TYLENOL 325 MG ONE ×2 (03:40→06:14)
[2020-04-16 03:50] LABS: ANION GAP 11.9 MEQ/L (5-15); BILIRUBIN,TOTAL 0.6 mg/dL (0.2-1.3); Calcium 8.6 mg/dL (8.4-10.2); Creatinine 1 1.79 mg/dL (0.66-1.25); Total Protein 6.8 g/dL (6.3-8.2)
[2020-04-16 03:51] LABS: Absolute Neutrophil Ct (ANC) 4.34 (1.4-6.9); BASOPHIL % 0.2 % (0.0-0.4); Basophil (Absolute #) 0.01 (0-0.4); Eosinophil % 0.9 % (0.00-5.0); Eosinophil (Absolute #) 0.04 (0-0.5); Hematocrit 34.3 % (42-50); Hemoglobin 10.8 gm/dl (12.5-18.0); Lymphocyte (Absolute #) 0.23 (1.0-4.6); Lymphocytes % 4.9 % (24.0-44.0); Mean Corpuscular Hemoglobin 29.6 pg (26-32); Mean Corpuscular Hgb Concent. 31.5 g/dl (32-36); Mean Platelet Volume 10.5 fl (7.5-11.0); Monocyte (Absolute #) 0.05 (0.0-1.3); Monocytes % 1.1 % (0.0-12.0); Neutrophil % 92.9 % (36.0-66.0); Platelet Count 167 K/mm3 (150-450); Red Blood Count 3.65 M/mm3 (4.1-5.6); Red Cell Distribution Width 14.9 % (11.5-14.0); White Blood Count 4.7 K/mm3 (4.0-10.5)
[2020-04-16 04:23] LABS: Slide Review 1 YES
[2020-04-16 04:26] LABS: Appearance SLIGHTLY CLOUDY (CLEAR); Bacteria FEW /HPF (NEGATIVE); Bilirubin NEGATIVE (NEGATIVE); Blood SMALL Ery/ul (0-5); Glucose NEGATIVE (NEGATIVE); Ketones NEGATIVE (NEGATIVE); Leukocyte Esterase MODERATE (NEGATIVE); Mucus SLIGHT /HPF (NEGATIVE); Nitrite POSITIVE (NEGATIVE); Protein,Urine Dip NEGATIVE (Negative); RBC 0-2 /HPF (0-2); Specific Gravity 1.011 (1.005-1.025); Urobilinogen NEGATIVE mg/dL (0-1); WBC 51-100 /HPF (0-5)
[2020-04-16 04:27] LABS: Epithelial Cells FEW /HPF (FEW)
[2020-04-16] MEDS ORDERED: ROCEPHIN 1 Gm-D5w 50 ml Bag** 1 G/50 ML IVPB IV STA (04:30)
[2020-04-16] MEDS ORDERED: ROCEPHIN 1 Gm-D5w 50 ml Bag** 1 G/50 ML IVPB IV ONE (04:31)
[2020-04-16 04:42] LABS: INFLUENZA A NEGATIVE (NEGATIVE); INFLUENZA B NEGATIVE (NEGATIVE); RESPIRATORY SYNCTIAL VIRUS NEGATIVE (Negative)
[2020-04-16] MEDS ORDERED: BACTRIM DS TABLET PO STA (05:57)
[2020-04-16] MEDS ORDERED: BACTRIM DS TABLET PO ONE (06:14)
[2020-04-16 06:46] VITALS: O2SAT 94
[2020-04-16 06:47] VITALS: BP 129/69; PULSE 93
--- NOTE | 2020-04-16 09:24 | XRAY ---
Indication: Fever. Comparison: August 28, 2018. Portable chest less inflated again with minimal bibasilar atelectasis/scarring. Remaining heart and lungs unremarkable. Bony thorax intact again with mild degenerative changes and lower cervical fusion hardware. Impression: Nonacute chest with chronic features.
== END 2020-04-16 06:50 | disposition home or self-care (01) ==
LOC: ED 03:12
DX: N39.0 Urinary tract infection, site not specified (principal); R50.9 Fever, unspecified; E27.40 Unspecified adrenocortical insufficiency; M19.90 Unspecified osteoarthritis, unspecified site; F31.9 Bipolar disorder, unspecified; I12.9 Hypertensive chronic kidney disease with stage 1 through stage 4 chronic kidney disease, or unspecified chronic kidney disease; N18.3 Chronic kidney disease, stage 3 (moderate); Z86.14 Personal history of Methicillin resistant Staphylococcus aureus infection; Z87.898 Personal history of other specified conditions; Z89.512 Acquired absence of left leg below knee; Z89.511 Acquired absence of right leg below knee; D46.9 Myelodysplastic syndrome, unspecified; Z87.442 Personal history of urinary calculi; Z79.899 Other long term (current) drug therapy; G62.9 Polyneuropathy, unspecified
CPT/HCPCS: 36000; 36415; 71045; 80053; 81001; 83605; 85025; 86308; 87040; 87077; 87086; 87186; 87631; 87651; 93041; 94760; 96360; 96365; 99284; U0003; J0696; A9270-GY

== ENCOUNTER 2020-05-31 01:40 | Emergency (ER) | payer MEDICARE ==
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
[2020-05-31 05:30] VITALS: BP 118/74; PULSE 78; O2SAT 99
[2020-05-31] MEDS ORDERED: TYLENOL 325 MG PO STA (05:44)
[2020-05-31] MEDS ORDERED: TYLENOL 325 MG ONE (05:46)
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
== END 2020-05-31 05:56 | disposition home or self-care (01) ==
LOC: ED 01:40
DX: Z04.71 Encounter for examination and observation following alleged adult physical abuse (principal); S40.022A Contusion of left upper arm, initial encounter; R58 Hemorrhage, not elsewhere classified; G50.1 Atypical facial pain; M54.2 Cervicalgia; Z79.899 Other long term (current) drug therapy; I10 Essential (primary) hypertension
CPT/HCPCS: 70450; 70486; 72125; 99284; A9270-GY

== ENCOUNTER 2020-07-26 07:24 | Day surgery (SDC) | payer MEDICARE ==
[2020-07-26] MEDS ORDERED: Lactated Ringers 1,000 ML IV SCH (08:00)
[2020-07-26] MEDS ORDERED: CEFAZOLIN 2 GM-D5W BAG** 2 GM/50 ML ML IV SCH (08:00)
[2020-07-26] MEDS ORDERED: XYLOCAINE 1% HCL 20 ML MDV ONE (08:19)
[2020-07-26] MEDS ORDERED: Lactated Ringers 1,000 ML IV ONE (08:19)
[2020-07-26] MEDS ORDERED: DIPRIVAN 200 MG/20 ML IV ONE (08:23)
[2020-07-26] MEDS ORDERED: Decadron 4 MG INJ ONE (08:23)
[2020-07-26] MEDS ORDERED: SUBLIMAZE 250 MCG/5 ML ONE (08:23)
[2020-07-26] MEDS ORDERED: Xylocaine-Mpf 2% 5 Ml Vial ONE (08:23)
[2020-07-26] MEDS ORDERED: TORAdol 30 mg Injection ONE (08:23)
[2020-07-26] MEDS ORDERED: Zofran 4 MG/2 ML VIAL ONE (08:23)
[2020-07-26] MEDS ORDERED: Hydromorphone 1 mg/ml Injection ONE (12:30)
[2020-07-26] MEDS ORDERED: SUBLIMAZE 100 MCG/2 ML ONE (12:30)
[2020-07-26 13:18] VITALS: PULSE 78; O2SAT 97
[2020-07-26 13:27] VITALS: BP 121/83
--- NOTE | 2020-07-26 14:56 | XRAY ---
Indication: Arthrodesis of the 2/3/4 phalanges. Intraoperative fluoroscopy was provided for 17 seconds. Single digital spot image submitted of the left forefoot demonstrates intact orthopedic K wires traversing the entire 2/3/4 toes including the MTP joints. Also intact 2/5 metatarsal head orthopedic screws with old 5th metatarsal head fracture deformity. Correlate with intraoperative/report.
--- NOTE | 2020-07-26 14:59 | XRAY ---
17 seconds fluoroscopy time in surgery for left foot arthrodesis.
--- NOTE | 2020-07-29 12:53 | OP ---
SURGERY DATE: 07/26/2020 0922 PREOPERATIVE DIAGNOSIS: Digital contractures of digits 2, 3, and 4 at proximal interphalangeal joint and metatarsophalangeal joints 2, 3 and 4 of the left foot. POSTOPERATIVE DIAGNOSIS: Digital contractures of digits 2, 3, and 4 at proximal interphalangeal joint and metatarsophalangeal joints 2, 3 and 4 of the left foot. PROCEDURES: 1) Proximal interphalangeal joint arthrodesis digits 2, 3 and 4. 2) Capsulotomies of digits 2 and 3. 3) Ananya osteotomy of digit 2 and extensor tendon lengthening of 2 and 3. SURGEON: Eleno Pelaez DPM. CORPORATE STRATEGIST: None. ANESTHESIA: General with local. ANTIBIOTICS: 2 gm Ancef. HEMOSTASIS: Left ankle tourniquet set to 250 mm of Mercury for 118 minutes. ESTIMATED BLOOD LOSS: Less than 10 ml. MATERIALS: 2-0 and 3-0 Vicryl, 3-0 Nylon and 3 Sergei wires 0.62 as well as 3 phalanx implants for the hammer toes and a snap-off screw 2 mm. INJECTABLES: Preoperative of 30 cc of a 1:1 mixture of 0.5% Marcaine plain and 1% Marcaine plain. PATHOLOGY: None. MICROBIOLOGY: None. COMPLICATIONS: None. DESCRIPTION OF PROCEDURE AND FINDINGS: Following satisfactory preoperative evaluation, the patient was brought into the OR and placed on the OR table in supine position. At this time general sedation was administered by the anesthesia team. Following sedation a well-padded tourniquet was applied to the left ankle and a preoperative injection of 30 cc of 0.5% Marcaine and 1% Marcaine plain in a 1:1 mixture was then injected into the left foot. At this time the left foot was then prepped and draped in the typical sterile fashion and the left ankle tourniquet was then inflated to 250 mm of Mercury. Attention was then directed to the second digit where a linear incision was made with a 15 blade at the dorsal aspect of the second metatarsophalangeal joint extending past the second proximal interphalangeal joint. At this time incision was deepened being careful to retract any neurovascular structures and protecting them as seen necessary. At this time the extensor tendon was encountered and resected in a V-type fashion. In order to lengthen at the end of the procedure due to the extent of the contracture. Incision was then deepened through the subcutaneous tissue, the wing to the dorsal aspect of the bone. At this point the proximal interphalangeal joint was encountered at the distal extent of the incision and a transverse incision was made at the joint line. J-stroke was performed in order to perform the medial and lateral collateral ligament dissection. A sagittal saw was then utilized to cut from dorsal distal to proximal plantar at the metatarsal head in order to performed the Ananya osteotomy. The head was moved approximately 2 mm proximally and temporarily fixated with a K-wire at the osteotomy site. A snap-off screw was then utilized to secure the Ananya osteotomy and this was checked under fluoroscopy and deemed to be adequate as far as proximal migration as well as the fixation that was utilized. At this point the saw was then utilized to resect the head of the proximal phalanx and the base of the intermediate phalanx of the proximal interphalangeal joint. The cuts were perpendicular to the long axis of the bone. A 0.45 K-wire was then predrilled into the longitudinal access of the proximal phalanx following the center of the proximal phalanx and then the wire was taken out and retrograded down the intermediate phalanx at the front of the toe in order to secure later on down the procedure. At this time the phalanx system was utilized as by the water carter recommendation where the proximal phalanx was beveled down to the laser line with the hand drill and the proximal phalanx was also beveled down to the laser line at the distal extent of the proximal phalanx. The implant was then inserted being screwed into the intermediate and the pressed and fit into the proximal extent this was checked under fluoroscopy and deemed to be adequate. The K-wire was the retrograded into the metatarsal head in order to secure in a plantar flexed position to prevent any dorsal contractures of the digit. Attention was then directed to the dorsal aspect of the third metatarsophalangeal joint and the contracted digit where there was again a strong plantar flexor contracture at the proximal interphalangeal joint as well as dorsiflexory contracture at the metatarsophalangeal joint. An incision was made approximately 4 cm just proximal to the metatarsal head just distal to the proximal interphalangeal joint where the extreme digital contracture were. At this point the skin was freed from the subcutaneous tissue medial and lateral to both to the metatarsophalangeal joint and a capsulotomy was performed at the third metatarsophalangeal joint releasing the medial and lateral collateral ligament from metatarsal head. McGlamry elevator was then utilized to free up the plantar metatarsal head and this was deemed to be adequate as far as reducing the metatarsophalangeal joint contracture for this digit. Attention was then directed to the proximal interphalangeal joint of the third where the same procedure took place as on the second. A transverse incision was made at the proximal interphalangeal joint exposing the head of the proximal phalanx and a J-stroke was performed in order to release the medial and lateral collateral ligaments as well as the dorsal capsule that was taken back in order to expose the proximal phalanx head as well as the intermediate phalanx base. The head was then resected utilizing a sagittal saw as well as the base of the proximal phalanx. Again, a K-wire was drilled down the proximal phalanx base centrally and along the dorsal longitudinal cortex and then retrograded outside of the intermediate phalanx through the toe. Again, the laser line was exposed and this was hand drilled to be laser line on the drill for both sides. The phalanx implant was screwed in into the intermediate phalanx and then pressed to fit in proximal phalanx then the K-wire was retrograded into the metatarsal head in order to prevent any dorsal contracture. Attention was then turned to the fourth digit where the metatarsophalangeal joint contracture was not as severe and the decision intraoperatively to neither perform a Ananya nor capsulotomy were determined. At this time an incision measuring approximately 2 cm was made over the proximal interphalangeal joint and exposing the capsule of this joint. A transverse incision was made and a J-stroke was performed in order to release the medial and lateral collateral ligament. The dorsal aspect of this capsule was reflected in order gain exposure to the neck of the proximal phalanx this was then resected utilizing a sagittal saw as well as the base of the intermediate phalanx. Again, K-wires were utilized in order to drill down the longitudinal cortex centrally of the proximal phalanx of the fourth digit and then it was taken out and retrograded out the front of the toe. The hand drill was utilized to made space for the phalanx implant for this digit and was inserted in the fashion that was discussed before. At this time this was checked under fluoroscopic imaging and the K-wire was retrograded into the base of the phalanx where this digit. At this time copious amounts of sterile saline were utilized to flush the incision site and the extensor tendons for digits 2 and 3 were coapted under little to no tension in order to prevent any dorsiflexory contracture of these digits. At this time the capsules were closed with 2-0 Monocryl. The skin edges were coapted subcutaneously utilizing 2-0 Vicryl and 3-0 Nylon was then utilized to coapt the skin edges in a horizontal mattress-type fashion. At this time a dressing consisting of Betadine, Adaptic, 4x4's, Kerlix and JACINDA were applied to the left foot. The K-wires were bent and tucked with Jurgan balls in order to prevent any injury secondary to the wires being placed out of the distal aspect of the foot. The patient was brought a surgical shoe in the postoperative anesthesia care unit. He will not be able to place weight on his forefoot for approximately six weeks' time. He is to only bear weight to his heel until the K-wire pins are pulled. He was reversed from anesthesia and was brought to the postoperative anesthesia care unit with vital signs stable and vascular status intact. He handled the anesthesia and the procedure well without any complication. Postoperative orders as written as follows: 1) Partial weight bearing to the left lower extremity to the heel only with the assistance of a walker. 2) Keep dressing clean, dry and intact until postoperative visit #1. 3) Pain controlled with [place] 5/325 mg. 4) Antibiotic prophylaxis: Keflex 500 mg p.o. every six hours for ten days. 5) Deep venous thrombosis prophylaxis 325 mg aspirin p.o. daily. 6) Follow up in one week. 7) Discharge to home.
== END 2020-07-26 14:14 | disposition home or self-care (01) ==
LOC: SDC 07:24
PROVIDERS: ATTEND Podiatrist Foot & Ankle Surgery
DX: M24.575 Contracture, left foot (principal); I10 Essential (primary) hypertension; Z79.899 Other long term (current) drug therapy
CPT/HCPCS: 73620; 76000; J0690; J1100; J1170; J1885; J2405; J2704; J3010

== ENCOUNTER 2020-12-15 17:35 | Emergency (ER) | payer MEDICARE ==
--- NOTE | 2020-12-15 17:55 | ERPHSYRPT ---
<ALEXEI MEDINA - Last Filed: 12/15/20 19:02> - History of Present Illness Patient Subjective Stated Complaint: Pt states that he began having pain and burning when urinating and then had a noticable amount of blood in his urine today Triage Nursing Assessment: Pt brought self to the ER, hypertensive, rates pain while urinating as a 5/10, right side flank pain, denies abdominal pain with palpatation, pulses normal, urine cloudy and straw color, early stage of stage 3 kidney failure, doesn't appear to be in any distress Timing/Duration: today, gradual onset, worse Activities at Onset: rest Quality: aching, dullness Abdominal Pain Onset Location: flank Pain Radiation: no radiation Severity of Pain-Max: moderate Severity of Pain-Current: mild Modifying Factors: Improves With: nothing Associated Symptoms: denies symptoms Previous symptoms: same symptoms as today Hx Tetanus, Diphtheria Vaccination/Date Given: Yes Hx Influenza Vaccination/Date Given: Yes Hx Pneumococcal Vaccination/Date Given: Yes <MAGUE KEARNEY - Last Filed: 12/20/20 19:49> - History of Present Illness Time Seen by Provider: 12/15/20 17:49 Physician History: 65 years old male presented in the ER with chief complaint of gradually worsening right flank pain since morning and almost an hour prior to arrival started to have gross hematuria which is improving now. Patient reports burning urination this morning. Pain is mild to moderate without any significant aggravating or relieving factors. Denies any associated nausea or vomiting. Does have a history of kidney stones in the past. Denies any fever or chills. (MAGUE KEARNEY) Allergies/Adverse Reactions: No Known Drug Allergies Allergy (Verified 12/15/20 17:50) Home Medications: Aspirin [Aspirin EC] 81 mg PO DAILY 06/27/16 [History] Hydroxychloroquine Sulfate [Plaquenil] 200 mg PO BID 06/27/16 [History] Tamsulosin HCl 0.4 mg [Flomax 0.4 MG] 0.4 mg PO BID 06/27/16 [History] Calcium Citrate/Vitamin D3 [Calcium Cit 250 mg-D3 200 Unit] 4 tab PO QID 06/28/16 [History] Losartan Potassium 50 mg PO DAILY 06/20/17 [History] Gabapentin [Neurontin] 600 mg PO QID 07/12/17 [History] cloNIDine HCL [Clonidine HCl] 0.3 mg PO HS 07/12/17 [History] Lurasidone HCl [Latuda] 80 mg PO DAILY 08/28/18 [History] Pyridoxine HCl (Vitamin B6) [B-6] 100 mg PO DAILY 08/28/18 [History] Hydroxyzine HCl 2 tab PO HS 07/04/19 [History] Doxepin HCl 100 mg PO HS 04/16/20 [History] Cyanocobalamin (Vitamin B-12) [Cobal-1000] 1,000 mcg IJ UD 11/05/20 [History] Finasteride [Proscar] 5 mg PO DAILY 11/05/20 [History] Travel Risk - International Travel Have you traveled outside of the country in past 3 weeks: No - Coronavirus Screening Are you exhibiting any of the following symptoms?: No Close contact with a COVID-19 positive Pt in past 14-21 Days: No <MAGUE KEARNEY - Last Filed: 12/20/20 19:49> - Review of Systems Constitutional: No Symptoms Eyes: No Symptoms Ears, Nose, & Throat: No Symptoms Respiratory: No Symptoms Cardiac: No Symptoms Abdominal/Gastrointestinal: Abdominal Pain Genitourinary Symptoms: Dysuria, Hematuria Musculoskeletal: No Symptoms Skin: No Symptoms Neurological: No Symptoms Psychological: No Symptoms Endocrine: No Symptoms Hematologic/Lymphatic: No Symptoms Immunological/Allergic: No Symptoms <MAGUE KEARNEY - Last Filed: 12/20/20 19:49> - Past Medical History Pertinent Past Medical History: Yes Neurological History: Migraines, Peripheral Neuropathy ENT History: Cataracts Cardiac History: Hypertension, Other Respiratory History: No Pertinent History Endocrine Medical History: Adrenal Insufficiency Musculoskeletal History: Degenerative Disk Disease, Osteoarthritis GI Medical History: Hernia History: Other Psycho-Social History: Bipolar, Depression Male Reproductive Disorders: Prostate Problems, Other Other Medical History: Pt has had 7 back surgeries, two fusions, last surgery in 2005, B TK, R TH, Cervical fusion x 2. Stage 3 kidney failure, removal of fatty tumor from neck, Bundle branch blockage, MRSA x3 back from back sx, Myelodysplasatic Syndrome - Past Surgical History Past Surgical History: Yes Neuro Surgical History: No Pertinent History Cardiac: Cardiac Catheterization Respiratory: No Pertinent History Gastrointestinal: Appendectomy, Cholecystectomy, Hernia Repair Genitourinary: No Pertinent History Musculoskeletal: Joint Replacement, Orthopedic Surgery, Other Male Surgical History: No Pertinent History Other Surgical History: BOTH KNEES REPLACED hernia repair x2. RIGHT HIP. 7 BACK OPERATIONS. GASTRIC BYP-ASS. 8 KIDNES STONES REMOVED. 2 CERVICAL FUSIONS. 2 HERNIA REPAIRS - Social History Smoking Status: Former smoker How long have you smoked: 4 years Exposure to second hand smoke: No Drug Use: none Patient Lives Alone: No <MAGUE KEARNEY - Last Filed: 12/20/20 19:49> - Physical Exam General Appearance: no apparent distress, alert Eye Exam: eyes nml inspection Ears, Nose, Throat Exam: normal ENT inspection, pharynx normal Neck Exam: normal inspection, supple, full range of motion Respiratory Exam: normal breath sounds, lungs clear Cardiovascular Exam: regular rate/rhythm, normal heart sounds Gastrointestinal/Abdomen Exam: soft, normal bowel sounds, tenderness (Right flank with positive CVA tenderness) Back Exam: normal inspection, normal range of motion, CVA tenderness Extremity Exam: normal inspection Neurologic Exam: alert, oriented x 3, cooperative Skin Exam: normal color SpO2 Interpretation: normal SpO2: 96 O2 Delivery: Room Air <MAGUE KEARNEY - Last Filed: 12/20/20 19:49> - Nursing Vital Signs Nursing Vital Signs: Initial Vital Signs Temperature 98.8 F 12/15/20 17:39 Pulse Rate 99 H 12/15/20 17:39 Blood Pressure 145/87 12/15/20 17:39 O2 Sat by Pulse Oximetry 96 12/15/20 17:39 Pain Scale Pain Intensity 2 - Course Nursing assessment & vital signs reviewed: Yes - CT Exams Abdomen/Pelvis CT Interpretation: Negative <ALEXEI MEDINA - Last Filed: 12/15/20 19:02> Ordered Tests: Medication Summary Discontinued Medications Generic Name Dose Route Start Last Admin Trade Name Freq PRN Reason Stop Dose Admin Ceftriaxone Sodium/Dextrose 1 g in 50 mls @ 100 mls/hr 12/15/20 18:38 12/15/20 18:46 Rocephin 1 Gm-D5w 50 Ml Bag IV 12/15/20 19:07 100 ml/hr STAT STA 100 mls/hr Administration Ceftriaxone Sodium/Dextrose Confirm 12/15/20 18:43 Rocephin 1 Gm-D5w 50 Ml Bag Administered 12/15/20 18:44 Dose 1 g in 50 mls @ ud IV .STK-MED ONE Lab/Rad Data: Laboratory Result Diagrams 12/15/20 18:03 12/15/20 18:03 Laboratory Results 12/15/20 12/15/20 12/15/20 Range/Units 18:03 18:03 17:54 WBC 4.9 (4.0-10.5) K/mm3 RBC 4.13 (4.1-5.6) M/mm3 Hgb 12.0 L (12.5-18.0) gm/dl Hct 38.2 L (42-50) % MCV 92.5 (78-100) fl MCH 29.1 (26-32) pg MCHC 31.4 L (32-36) g/dl RDW 16.8 H (11.5-14.0) % Plt Count 182 (150-450) K/mm3 MPV 9.7 (7.5-11.0) fl Gran % 69.5 H (36.0-66.0) % Eos # (Auto) 0.07 (0-0.5) Absolute Lymphs (auto) 0.73 L (1.0-4.6) Absolute Monos (auto) 0.68 (0.0-1.3) Lymphocytes % 15.0 L (24.0-44.0) % Monocytes % 13.9 H (0.0-12.0) % Eosinophils % 1.4 (0.00-5.0) % Basophils % 0.2 (0.0-0.4) % Absolute Granulocytes 3.39 (1.4-6.9) Basophils # 0.01 (0-0.4) Sodium 136 L (137-145) mmol/L Potassium 3.7 (3.5-5.1) mmol/L Chloride 109 H (98-107) mmol/L Carbon Dioxide 20 L (22-30) mmol/L Anion Gap 11.2 (5-15) MEQ/L BUN 20 (9-20) mg/dL Creatinine 1.53 H (0.66-1.25) mg/dL Estimated GFR 48.6 ML/MIN Glucose 109 H (74-106) mg/dL Calcium 8.4 (8.4-10.2) mg/dL Total Bilirubin 0.50 (0.2-1.3) mg/dL AST 23 (17-59) U/L ALT 21 (0-50) U/L Alkaline Phosphatase 101 (38-126) U/L Serum Total Protein 6.5 (6.3-8.2) g/dL Albumin 3.8 (3.5-5.0) g/dL Lipase 44 (23-300) U/L Urine Color YELLOW (YELLOW) Urine Appearance SLIGHTLY CLOUDY (CLEAR) Urine pH 6.0 (5-6) Ur Specific [place] 1.006 (1.005-1.025) Urine Protein NEGATIVE (Negative) Urine Ketones NEGATIVE (NEGATIVE) Urine Blood MODERATE (0-5) Michael/ul Urine Nitrite POSITIVE (NEGATIVE) Urine Bilirubin NEGATIVE (NEGATIVE) Urine Urobilinogen NEGATIVE (0-1) mg/dL Ur Leukocyte Esterase LARGE (NEGATIVE) Urine WBC (Auto) 26-50 (0-5) /HPF Urine RBC (Auto) NONE (0-2) /HPF U Epithel Cells (Auto) RARE (FEW) /HPF Urine Bacteria (Auto) NONE SEEN (NEGATIVE) /HPF Urine Culture Reflexed YES (NO) Urine Glucose NEGATIVE (NEGATIVE) mg/dL - Progress Progress: improved Counseled pt/family regarding: lab results, diagnosis, need for follow-up, rad results <MAGUE KEARNEY - Last Filed: 12/20/20 19:49> - Progress Progress Note: Ruled out kidney stone, pyelonephritis, offered pain medication which he refused. Does have UTI and is given a dose of Rocephin in here and will continue with antibiotics to go home as well. With his pain in the flank area I believe patient has impending pyelonephritis, recommended outpatient follow-up and discussed signs symptoms of worsening needing return to ER which he seems understanding. Stable for discharge. (MAGUE KEARNEY) <ALEXEI MEDINA - Last Filed: 12/15/20 19:02> - Departure Departure Disposition: Home Critical Care Time: No <MAGUE KEARNEY - Last Filed: 12/20/20 19:49> - Departure Clinical Impression: UTI (urinary tract infection) Qualifiers: Urinary tract infection type: site unspecified Hematuria presence: with hematuria Qualified Code(s): N39.0 - Urinary tract infection, site not specified Condition: Stable Referrals: ANTOINETTE TENA [Primary Care Provider] - Follow Up with PCP/3 days Instructions: Blood in the Urine (Hematuria) in Adults, Urinary Tract Infection, Adult (DC) Additional Instructions: Plenty of fluids. Take Tylenol as needed. Follow-up with primary care physician for reevaluation and also with your urologist. Return to ER for worsening hematuria, pain or if develop fever chills. Prescriptions: Cefpodoxime Proxetil 200 mg [Vantin 200 mg] 200 mg PO BID 7 Days #14 tablet
[2020-12-15 18:06] LABS: Absolute Neutrophil Ct (ANC) 3.39 (1.4-6.9); BASOPHIL % 0.2 % (0.0-0.4); Basophil (Absolute #) 0.01 (0-0.4); Eosinophil % 1.4 % (0.00-5.0); Eosinophil (Absolute #) 0.07 (0-0.5); Hematocrit 38.2 % (42-50); Lymphocyte (Absolute #) 0.73 (1.0-4.6); Mean Cell Volume 92.5 fl (78-100); Mean Corpuscular Hemoglobin 29.1 pg (26-32); Mean Corpuscular Hgb Concent. 31.4 g/dl (32-36); Mean Platelet Volume 9.7 fl (7.5-11.0); Monocyte (Absolute #) 0.68 (0.0-1.3); Monocytes % 13.9 % (0.0-12.0); Neutrophil % 69.5 % (36.0-66.0); Platelet Count 182 K/mm3 (150-450); Red Blood Count 4.13 M/mm3 (4.1-5.6); Red Cell Distribution Width 16.8 % (11.5-14.0); White Blood Count 4.9 K/mm3 (4.0-10.5)
[2020-12-15 18:09] LABS: Appearance SLIGHTLY CLOUDY (CLEAR); Bilirubin NEGATIVE (NEGATIVE); Blood MODERATE Ery/ul (0-5); Epithelial Cells RARE /HPF (FEW); Glucose NEGATIVE (NEGATIVE); Ketones NEGATIVE (NEGATIVE); Leukocyte Esterase LARGE (NEGATIVE); Nitrite POSITIVE (NEGATIVE); Protein,Urine Dip NEGATIVE (Negative); Specific Gravity 1.006 (1.005-1.025); Urobilinogen NEGATIVE mg/dL (0-1); WBC 26-50 /HPF (0-5)
[2020-12-15 18:26] LABS: Bacteria NONE SEEN /HPF (NEGATIVE)
[2020-12-15 18:34] LABS: ALBUMIN 3.8 g/dL (3.5-5.0); ANION GAP 11.2 MEQ/L (5-15); BILIRUBIN,TOTAL 0.5 mg/dL (0.2-1.3); Calcium 8.4 mg/dL (8.4-10.2); Creatinine 1 1.53 mg/dL (0.66-1.25); EST GLOMERULAR FILTRATION RATE 48.6 ML/MIN; Potassium 3.7 mmol/L (3.5-5.1); Total Protein 6.5 g/dL (6.3-8.2)
[2020-12-15] MEDS ORDERED: ROCEPHIN 1 Gm-D5w 50 ml Bag** 1 G/50 ML IVPB IV ONE (18:43)
[2020-12-15] MEDS: ROCEPHIN 1 Gm-D5w 50 ml Bag** 1 G/50 ML IVPB IV STA (18:46)
[2020-12-15 18:59] VITALS: O2SAT 96
[2020-12-15 19:07] VITALS: BP 145/88; PULSE 84
--- NOTE | 2020-12-16 08:42 | XRAY ---
Indication: Right flank pain and hematuria. Multiple contiguous axial images obtained through the abdomen and pelvis without contrast as ordered. Comparison: February 05, 2020. Lung bases again demonstrate scattered fibrosis/scarring and calcific pleural plaquing. No infiltrate or effusion. Heart is not enlarged. Again the lower lumbar posterior fusion hardware and right hip arthroplasty produces beam artifact limiting these levels. Stable gastric bypass surgery and cholecystectomy. Noncontrasted stomach and bowel loops nonobstructed. There is worsening moderate diffuse scattered colonic fecal debris with moderate rectal impaction. No free fluid/air. Stable 6 cm right renal exophytic cyst and enlarged prostate gland with benign-appearing chunky calcifications. Remaining liver, pancreas, spleen, adrenal glands, kidneys, ureters, bladder, and aorta appear unremarkable for noncontrast exam. Osseous structures intact again with mild osteopenia, moderate multilevel degenerative spondylosis, and mild levorotoscoliosis. Impression: 1. Again beam artifact from posterior lumbar fusion hardware and right hip arthroplasty. 2. Worsening moderate diffuse fecal stasis with rectal impaction. 3. Stable right renal cyst, enlarged prostate gland, bibasilar calcified pleural plaquing, and chronic bony findings. Comment: Preliminary interpretation was made by [facility]. No critical discrepancy.
== END 2020-12-15 19:12 | disposition home or self-care (01) ==
LOC: ED 17:35
DX: R10.9 Unspecified abdominal pain (principal); N39.0 Urinary tract infection, site not specified; R31.9 Hematuria, unspecified; R30.9 Painful micturition, unspecified; I10 Essential (primary) hypertension; Z79.899 Other long term (current) drug therapy
CPT/HCPCS: 36000; 36415; 74176; 80053; 81001; 83690; 85025; 87077; 87086; 87186; 96365; 99284; J0696

== ENCOUNTER 2021-07-30 17:32 | Emergency (ER) | payer MEDICARE ==
--- NOTE | 2021-07-30 17:37 | ERPHSYRPT ---
- History of Present Illness Time Seen by Provider: 07/30/21 17:37 Source: patient Exam Limitations: no limitations Physician History: This is a 66-year-old white male patient of Dr. Banda who had a blood draw this morning and patient was found at 845 this morning to have a 2.8 potassium level. Patient is completely asymptomatic per his report. Patient was then nella led by his primary care physician's office and told to come to the emergency room for evaluation. Patient does take Lasix daily and he takes twice a day potassium. Patient has a history of migraine headache, peripheral neuropathy, stage III renal failure, hypertension, bipolar disorder, depression and degenerative joint disease. Patient is here for low potassium levels but is asymptomatic. Timing/Duration: today Severity: mild Associated Symptoms: denies symptoms Allergies/Adverse Reactions: No Known Drug Allergies Allergy (Verified 12/15/20 17:50) Home Medications: Aspirin [Aspirin EC] 81 mg PO DAILY 06/27/16 [History] Hydroxychloroquine Sulfate [Plaquenil] 200 mg PO BID 06/27/16 [History] Tamsulosin HCl 0.4 mg [Flomax 0.4 MG] 0.4 mg PO BID 06/27/16 [History] Calcium Citrate/Vitamin D3 [Calcium Cit 250 mg-D3 200 Unit] 4 tab PO QID 06/28/16 [History] Losartan Potassium 50 mg PO DAILY 06/20/17 [History] Gabapentin [Neurontin] 600 mg PO QID 07/12/17 [History] cloNIDine HCL [Clonidine HCl] 0.3 mg PO HS 07/12/17 [History] Lurasidone HCl [Latuda] 80 mg PO DAILY 08/28/18 [History] Pyridoxine HCl (Vitamin B6) [B-6] 100 mg PO DAILY 08/28/18 [History] Hydroxyzine HCl 2 tab PO HS 07/04/19 [History] Doxepin HCl 100 mg PO HS 04/16/20 [History] Cyanocobalamin (Vitamin B-12) [Cobal-1000] 1,000 mcg IJ UD 11/05/20 [History] Finasteride [Proscar] 5 mg PO DAILY 11/05/20 [History] Furosemide [Lasix] 80 mg PO DAILY 07/30/21 [History] Potassium Chloride [Klor-Con] 20 meq PO BID 07/30/21 [History] Hx Tetanus, Diphtheria Vaccination/Date Given: Yes Hx Influenza Vaccination/Date Given: Yes Hx Pneumococcal Vaccination/Date Given: Yes Travel Risk - International Travel Have you traveled outside of the country in past 3 weeks: No - Coronavirus Screening Are you exhibiting any of the following symptoms?: No Close contact with a COVID-19 positive Pt in past 14-21 Days: No - Review of Systems Constitutional: No Symptoms Eyes: No Symptoms Ears, Nose, & Throat: No Symptoms Respiratory: No Symptoms Cardiac: No Symptoms Abdominal/Gastrointestinal: No Symptoms Genitourinary Symptoms: No Symptoms Musculoskeletal: No Symptoms Skin: No Symptoms Neurological: No Symptoms Psychological: No Symptoms Endocrine: No Symptoms Hematologic/Lymphatic: No Symptoms Immunological/Allergic: No Symptoms All Other Systems: Reviewed and Negative - Past Medical History Pertinent Past Medical History: Yes Neurological History: Migraines, Peripheral Neuropathy ENT History: Cataracts Cardiac History: Hypertension, Other Respiratory History: No Pertinent History Endocrine Medical History: Adrenal Insufficiency Musculoskeletal History: Degenerative Disk Disease, Osteoarthritis GI Medical History: Hernia History: Other Psycho-Social History: Bipolar, Depression Male Reproductive Disorders: Prostate Problems, Other Other Medical History: Pt has had 7 back surgeries, two fusions, last surgery in 2005, B TK, R TH, Cervical fusion x 2. Stage 3 kidney failure, removal of fatty tumor from neck, Bundle branch blockage, MRSA x3 back from back sx, Myelodysplasatic Syndrome - Past Surgical History Past Surgical History: Yes Neuro Surgical History: No Pertinent History Cardiac: Cardiac Catheterization Respiratory: No Pertinent History Gastrointestinal: Appendectomy, Cholecystectomy, Hernia Repair Genitourinary: No Pertinent History Musculoskeletal: Joint Replacement, Orthopedic Surgery, Other Male Surgical History: No Pertinent History Other Surgical History: BOTH KNEES REPLACED hernia repair x2. RIGHT HIP. 7 BA CK OPERATIONS. GASTRIC BYP-ASS. 8 KIDNES STONES REMOVED. 2 CERVICAL FUSIONS. 2 HERNIA REPAIRS - Social History Smoking Status: Former smoker How long have you smoked: 4 years Exposure to second hand smoke: No Drug Use: none Patient Lives Alone: No - Nursing Vital Signs Nursing Vital Signs: Initial Vital Signs Temperature 97.4 F 07/30/21 17:41 Pulse Rate 83 07/30/21 17:41 Respiratory Rate 20 07/30/21 17:41 Blood Pressure 107/73 07/30/21 17:41 O2 Sat by Pulse Oximetry 100 07/30/21 17:41 Pain Scale Pain Intensity 0 - Physical Exam General Appearance: no apparent distress, alert Eye Exam: PERRL/EOMI, eyes nml inspection Ears, Nose, Throat Exam: normal ENT inspection, moist mucous membranes Neck Exam: normal inspection, non-tender, supple, full range of motion Respiratory Exam: normal breath sounds, lungs clear, airway intact, No chest tenderness, No respiratory distress Cardiovascular Exam: regular rate/rhythm, normal heart sounds, normal peripheral pulses Gastrointestinal/Abdomen Exam: soft, normal bowel sounds, No tenderness Rectal Exam: not done Back Exam: normal inspection, normal range of motion, No CVA tenderness, No vertebral tenderness Extremity Exam: normal inspection, normal range of motion, pelvis stable Neurologic Exam: alert, oriented x 3, cooperative, director game II-XII nml as tested, normal mood/affect, nml cerebellar function, nml station & gait, sensation nml Skin Exam: normal color, warm, dry Lymphatic Exam: No adenopathy SpO2 Interpretation: normal O2 Delivery: Room Air - Course Nursing assessment & vital signs reviewed: Yes Ordered Tests: Active Orders 24 hr Category Date Time Status IV Insertion STAT Care 07/30/21 17:55 Active BMP Stat Lab 07/30/21 18:10 Completed MAGNESIUM Stat Lab 07/30/21 18:10 Completed Medication Summary Generic Name Dose Route Start Last Admin Trade Name Freq PRN Reason Stop Dose Admin Potassium Chloride 20 meq in 100 mls @ 50 mls/hr 07/30/21 18:45 07/30/21 18:43 Potassium Chloride 20 Meq In Water 100ml IV 07/30/21 22:44 50 mls/hr Q2H SURESH Administration Discontinued Medications Generic Name Dose Route Start Last Admin Trade Name Freq PRN Reason Stop Dose Admin Potassium Chloride 20 meq 07/30/21 18:38 07/30/21 18:43 Klor Con 10 Meq PO 07/30/21 18:39 20 meq STAT ONE Administration Potassium Chloride Confirm 07/30/21 18:42 Klor Con 10 Meq Administered 07/30/21 18:43 Dose 20 meq PO .[employer] Lab/Rad Data: Laboratory Result Diagrams 07/30/21 18:10 Laboratory Results 07/30/21 Range/Units 18:10 Sodium 138 (137-145) mmol/L Potassium 2.7 L* (3.5-5.1) mmol/L Chloride 109 H (98-107) mmol/L Carbon Dioxide 19 L (22-30) mmol/L Anion Gap 12.4 (5-15) MEQ/L BUN 21 H (9-20) mg/dL Creatinine 2.26 H (0.66-1.25) mg/dL Estimated GFR 30.9 ML/MIN Glucose 112 H (74-106) mg/dL Calcium 7.6 L (8.4-10.2) mg/dL Magnesium 1.8 (1.6-2.3) mg/dL - Progress Progress: improved Progress Note: 07/30/21 21:13 Medical decision making: This patient states that his primary care physician is Dr. Lehman. Patient will be discharged to home tonight. He will take his second daily dose of potassium when he gets home tonight. He will continue his diuretic and twice a day potassium. I wrote a prescription for a repeat potassium and magnesium on 08/01/2021 and the results will be sent to Dr. Lehman. Counseled pt/family regarding: lab results, diagnosis, need for follow-up - Departure Departure Disposition: Home Clinical Impression: Hypokalemia Condition: Stable Critical Care Time: No Referrals: ANTOINETTE BANDA [Primary Care Provider] - Additional Instructions: Take your second potassium dose this evening. Starting tomorrow morning take your diuretic as prescribed and take your twice daily potassium. Follow-up on 08/01/2021, at the lab at the hospital to have blood work drawn.
[2021-07-30 17:45] VITALS: O2SAT 100
[2021-07-30 18:26] LABS: ANION GAP 12.4 MEQ/L (5-15); Calcium 7.6 mg/dL (8.4-10.2); Creatinine 1 2.26 mg/dL (0.66-1.25); EST GLOMERULAR FILTRATION RATE 30.9 ML/MIN; MAGNESIUM 1.8 mg/dL (1.6-2.3)
[2021-07-30 18:36] LABS: Potassium 2.7 mmol/L (3.5-5.1)
[2021-07-30] MEDS ORDERED: Klor Con 10 MEQ PO ONE ×2 (18:38→18:42)
[2021-07-30] MEDS ORDERED: POTASSIUM CHLORIDE 20 mEq IN WATER 100ML 100 ML IV ONE (18:42)
[2021-07-30] MEDS: POTASSIUM CHLORIDE 20 mEq IN WATER 100ML 20 MEQ/100 ML BAG IV SCH ×2 (18:43→21:27)
[2021-07-30] MEDS ORDERED: K-LYTE 25 MEQ PO ONE (21:21)
[2021-07-30] MEDS ORDERED: K-LYTE 25 MEQ ONE (21:26)
[2021-07-30 22:08] VITALS: PULSE 75
[2021-07-30 23:00] VITALS: BP 119/81
== END 2021-07-30 22:58 | disposition home or self-care (01) ==
LOC: ED 17:32
DX: E87.6 Hypokalemia (principal)
CPT/HCPCS: 36000; 36415; 80048; 83735; 99284; J3480; A9270-GY